=== PATIENT | male | born 1950 | race Caucasian/White ===

== ENCOUNTER 2020-04-23 08:07 | Outpatient (CLI) | payer MEDICARE, SELFPAY ==
--- NOTE | 2020-04-23 08:20 | XR_ITS ---
WS: [id number] Right knee, 3 views, 04/23/2020 Clinical Data: ARTHRALGIA OF RIGHT KNEE Comparison: None. Findings: No fractures or dislocations are seen. The joint spaces are normal. The patella is intact. The soft t issues are unremarkable. XR/XR knee RT 3V* [id number] Impression: Negative right knee.
== END 2020-04-23 08:08 | disposition home or self-care (01) ==
LOC: RADWPI 08:12
PROVIDERS: Family Provider Family Medicine; PCP Family Medicine
DX: M25.561 Pain in right knee (principal)
CPT/HCPCS: 73562

== ENCOUNTER → 2020-05-07 12:36 | Outpatient (BNVA) | payer MEDICARE, SELFPAY | PROVIDERS: Family Provider Family Medicine; PCP Family Medicine; Visit Provider Specialist | DX: M25.561 Pain in right knee (principal) | CPT/HCPCS: 73560; 73565 ==

== ENCOUNTER → 2022-04-12 16:25 | Outpatient (BNVA) | payer MEDICARE, SELFPAY | PROVIDERS: Family Provider Family Medicine; Visit Provider Family Medicine | DX: E78.2 Mixed hyperlipidemia (principal); I10 Essential (primary) hypertension; Z76.89 Persons encountering health services in other specified circumstances | CPT/HCPCS: 80053; 80061; 84153; 85025 ==

== ENCOUNTER 2022-04-20 11:22 | Outpatient (CLI) | payer MEDICARE, SELFPAY | END 2022-04-20 11:23 | disposition home or self-care (01) | PROVIDERS: Visit Provider Urology | DX: R97.20 Elevated prostate specific antigen [PSA] (principal) | CPT/HCPCS: 36415; 84153 ==

== ENCOUNTER → 2022-04-22 09:15 | Outpatient (BNVA) | payer MEDICARE, SELFPAY | PROVIDERS: Visit Provider Urology | DX: R97.20 Elevated prostate specific antigen [PSA] (principal) | CPT/HCPCS: 81003; 99204 ==

== ENCOUNTER 2022-05-23 14:04 | Oncology outpatient (recurring) (ONCR) | payer MEDICARE, SELFPAY | END 2022-06-10 23:59 | disposition home or self-care (01) | PROVIDERS: PCP Family Medicine; Visit Provider Internal Medicine Hematology & Oncology | DX: C61 Malignant neoplasm of prostate (principal); Z79.818 Long term (current) use of other agents affecting estrogen receptors and estrogen levels; Z87.891 Personal history of nicotine dependence | CPT/HCPCS: 99204 ==

== ENCOUNTER 2022-07-01 11:30 | Oncology outpatient (recurring) (ONCR) | payer MEDICARE, SELFPAY ==
[2022-06-23 15:19] LABS: Basophils % 0.6 %; Eosinophils # 0.3 10^3/uL (0.0-0.8); Eosinophils % 4.6 %; Hematocrit 35.6 % (42.0-52.0); Hemoglobin 12.6 g/dL (11.7-16.6); Lymphocytes # 1.5 10^3/uL (0.8-4.8); Lymphocytes % 22.1 %; Mean Corpuscular HGB Conc 35.4 g/dL (30.0-36.0); Mean Corpuscular Hemoglobin 34.4 pg (28.0-34.0); Mean Corpuscular Volume 97.3 fl (80-94); Mean Platelet Volume 9.3 fL (7.4-10.4); Monocytes # 0.5 10^3/uL (0.2-0.9); Monocytes % 7.2 %; Neutrophils # 4.29 10^3/uL (1.8-7.7); Neutrophils % 65.2 %; Nucleated Red Blood Cells % 0 %; Platelet Count 180 10^3/cmm (130-400); Red Blood Count 3.66 10^6/uL (4.1-5.3); Red Cell Distribution Width 11.7 % (12.1-15.1); White Blood Count 6.6 10^3/uL (4.0-10.0)
[2022-06-23 15:52] LABS: Alanine Aminotransferase 20 U/L (0-41); Albumin Level 4.5 g/dL (3.5-5.2); Alkaline Phosphatase 84 U/L (40-130); Anion Gap 14.1 (5-19); Blood Urea Nitrogen 14 mg/dL (8-23); Calcium 9.2 mg/dL (8.5-10.5); Carbon Dioxide 23 mmol/L (22-29); Chloride 101 mmol/L (98-107); Glomerular Filtration Rate 54.6 mL/min (90-130); Glucose 99 mg/dL (65-115); Osmolality Calculated 279 mOsm/kg (285-295); Potassium 4.1 mmol/L (3.5-5.1); Sodium 134 mmol/L (136-145); Testosterone Total 519.4 ng/dL (193-740); Total Bilirubin 0.4 mg/dL (0.15-1.2); Total Protein 7.5 g/dL (6.6-8.7)
[2022-06-23 16:10] LABS: Aspartate Amino Transferase 21 U/L (0-40)
[2022-07-01] MEDS: leuprolide 22.5 mg Kit IM (11:42)
== END 2022-07-11 23:59 | disposition home or self-care (01) ==
PROVIDERS: PCP Family Medicine; Visit Provider Internal Medicine Hematology & Oncology
DX: C61 Malignant neoplasm of prostate (principal); Z79.818 Long term (current) use of other agents affecting estrogen receptors and estrogen levels
CPT/HCPCS: 36415; 80053; 84153; 84403; 85025; 96402; 99214; J9217

== ENCOUNTER 2022-08-09 13:37 | Outpatient (CLI) | payer MEDICARE, SELFPAY ==
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
== END 2022-08-09 13:38 | disposition home or self-care (01) ==
LOC: RAD 13:40
PROVIDERS: PCP Family Medicine; Visit Provider Internal Medicine Hematology & Oncology
DX: C61 Malignant neoplasm of prostate (principal)
CPT/HCPCS: 72100; 72220

== ENCOUNTER 2022-08-10 13:06 | Oncology outpatient (recurring) (ONCR) | payer MEDICARE, SELFPAY ==
[2022-08-10 13:43] LABS: Basophils % 0.5 %; Eosinophils # 0.3 10^3/uL (0.0-0.8); Eosinophils % 4.7 %; Hematocrit 36.3 % (42.0-52.0); Hemoglobin 12.5 g/dL (11.7-16.6); Lymphocytes # 1.4 10^3/uL (0.8-4.8); Lymphocytes % 20.9 %; Mean Corpuscular HGB Conc 34.4 g/dL (30.0-36.0); Mean Corpuscular Volume 98.6 fl (80-94); Mean Platelet Volume 9.5 fL (7.4-10.4); Monocytes # 0.4 10^3/uL (0.2-0.9); Neutrophils # 4.43 10^3/uL (1.8-7.7); Neutrophils % 67.6 %; Nucleated Red Blood Cells % 0 %; Platelet Count 180 10^3/cmm (130-400); Red Blood Count 3.68 10^6/uL (4.1-5.3); Red Cell Distribution Width 11.6 % (12.1-15.1); White Blood Count 6.6 10^3/uL (4.0-10.0)
[2022-08-10 14:11] LABS: Alanine Aminotransferase 25 U/L (0-41); Albumin Level 4.2 g/dL (3.5-5.2); Alkaline Phosphatase 83 U/L (40-130); Aspartate Amino Transferase 23 U/L (0-40); Blood Urea Nitrogen 22 mg/dL (8-23); Calcium 9.1 mg/dL (8.5-10.5); Carbon Dioxide 24 mmol/L (22-29); Chloride 105 mmol/L (98-107); Glomerular Filtration Rate 50.1 mL/min (90-130); Glucose 101 mg/dL (65-115); Osmolality Calculated 289 mOsm/kg (285-295); Sodium 138 mmol/L (136-145); Testosterone Total 2.5 ng/dL (193-740); Total Bilirubin 0.4 mg/dL (0.15-1.2); Total Protein 7.2 g/dL (6.6-8.7)
== END 2022-08-10 23:59 | disposition home or self-care (01) ==
LOC: ONCMED 13:08
PROVIDERS: PCP Family Medicine; Visit Provider Internal Medicine Hematology & Oncology
DX: C61 Malignant neoplasm of prostate (principal); M87.852 Other osteonecrosis, left femur; M87.851 Other osteonecrosis, right femur; R59.0 Localized enlarged lymph nodes; F10.90 Alcohol use, unspecified, uncomplicated; Z79.818 Long term (current) use of other agents affecting estrogen receptors and estrogen levels; Z79.899 Other long term (current) drug therapy; Z87.891 Personal history of nicotine dependence
CPT/HCPCS: 36415; 80053; 84153; 84403; 85025; 99214

== ENCOUNTER 2022-09-29 08:29 | Oncology outpatient (recurring) (ONCR) | payer MEDICARE, SELFPAY ==
[2022-09-29 09:00] LABS: Basophils % 0.6 %; Eosinophils # 0.2 10^3/uL (0.0-0.8); Eosinophils % 3.5 %; Hematocrit 39.8 % (42.0-52.0); Hemoglobin 14.1 g/dL (11.7-16.6); Lymphocytes # 1.6 10^3/uL (0.8-4.8); Lymphocytes % 24.5 %; Mean Corpuscular HGB Conc 35.4 g/dL (30.0-36.0); Mean Corpuscular Hemoglobin 33.9 pg (28.0-34.0); Mean Corpuscular Volume 95.7 fl (80-94); Mean Platelet Volume 9.2 fL (7.4-10.4); Monocytes # 0.4 10^3/uL (0.2-0.9); Monocytes % 6.2 %; Neutrophils # 4.26 10^3/uL (1.8-7.7); Neutrophils % 64.7 %; Nucleated Red Blood Cells % 0 %; Platelet Count 208 10^3/cmm (130-400); Red Blood Count 4.16 10^6/uL (4.1-5.3); Red Cell Distribution Width 11.9 % (12.1-15.1); White Blood Count 6.6 10^3/uL (4.0-10.0)
[2022-09-29 09:35] LABS: Alanine Aminotransferase 35 U/L (0-41); Albumin Level 4.8 g/dL (3.5-5.2); Alkaline Phosphatase 91 U/L (40-130); Anion Gap 16.2 (5-19); Aspartate Amino Transferase 30 U/L (0-40); Blood Urea Nitrogen 17 mg/dL (8-23); Calcium 9.5 mg/dL (8.5-10.5); Carbon Dioxide 24 mmol/L (22-29); Chloride 102 mmol/L (98-107); Globulin 3.4 g/dL (1.3-4.6); Glomerular Filtration Rate 59.9 mL/min (90-130); Glucose 105 mg/dL (65-115); Osmolality Calculated 288 mOsm/kg (285-295); Potassium 4.2 mmol/L (3.5-5.1); Prostate Specific Antigen 0.895 ng/mL (0-4); Sodium 138 mmol/L (136-145); Testosterone Total 10.6 ng/dL (193-740); Total Bilirubin 0.9 mg/dL (0.15-1.2); Total Protein 8.2 g/dL (6.6-8.7)
[2022-09-29] MEDS: leuprolide 22.5 mg Kit IM (12:10)
== END 2022-10-11 23:59 | disposition home or self-care (01) ==
PROVIDERS: PCP Family Medicine; Visit Provider Internal Medicine Hematology & Oncology
DX: C61 Malignant neoplasm of prostate (principal); C79.51 Secondary malignant neoplasm of bone; M87.852 Other osteonecrosis, left femur; M87.851 Other osteonecrosis, right femur; Z79.52 Long term (current) use of systemic steroids; Z79.818 Long term (current) use of other agents affecting estrogen receptors and estrogen levels; Z79.899 Other long term (current) drug therapy; Z87.891 Personal history of nicotine dependence
CPT/HCPCS: 36415; 80053; 84153; 84403; 85025; 96402; 99214; J9217

== ENCOUNTER 2022-11-08 13:48 | Oncology outpatient (recurring) (ONCR) | payer MEDICARE, SELFPAY ==
--- NOTE | 2022-10-13 14:34 | N.ONRAD NP_ITS ---
Radiation Oncology Consultation Patient Name: Ravi Armas Date of : 1950 Date of Service: 10/13/2022 Attending Physician: Jerry Singh M.D. Ravi Armas was seen in consultation this morning at the request of Jf Parada M.D. for consideration of prostate radiotherapy in the management of low volume metastatic prostate cancer.. He initially was identified to have an elevated PSA level of 178.8 ng/mL in April. An MRI of the prostate ordered on May 03, 2022 described a 6.3 cm x 5.9 cm x 4.9 cm (119 cc) gland with abnormal signal intensity involving the transitional zone and bilateral peripheral zones, prostatic capsule, and abnormal soft tissue mass extending to the left seminal vesicle. There were no abnormally enlarged pelvic lymph nodes, however, signal abnormality was identified in the right inferior pubic ramus, right pubic symphysis, and right posterior acetabulum. A transrectal ultrasound-guided biopsy was not possible on account of the patient's medical history of ulcerative colitis for which a total colectomy was performed. A PSMA scan completed on June 17, 2022 confirmed metabolic activity within the left peripheral zone extending into the left seminal vesicle (SUV 11.3), right pubic symphysis (SUV 4.2), a sacral lesion (SUV 9.1) and mild tracer activity in the right lamina of C3 vertebral body. Bicalutamide and Lupron were prescribed. The first cycle of Lupron was administered on July 01, 2022. A radiograph of the sacrum completed on August 09, 2022 reported a sclerotic lesion involving the right pubic bone measuring 2.8 cm x 1.5 cm. A PSA level ordered on August 10, 2022 was 1.1 ng/mL and total testosterone was 2.5 ng/dL. A transperineal CT-guided biopsy was unable to be performed. I discussed with Mr. Armas The National Comprehensive Cancer Network Guidelines for prostate cancer patients with a low metastatic burden. Therapeutic options include ADT, ADT with an androgen biosynthesis or receptor inhibitor, or ADT and EBRT to the primary tumor. I would anticipate a 4 week course of hypofractionated prostate radiotherapy. Prior to commencement of radiotherapy, a planning CT scan will be acquired to delineate the clinical target volume. I also discussed potential adverse events related to radiotherapy. The patient has verbalized understanding would like to proceed as advised. The patient???s treatment plan was discussed with David Parada M.D. Signed by: Jerry Singh 11/01/2022 2:01:12 PM
--- NOTE | 2022-10-20 | CT_ITS ---
Radiation Therapy Planning CT images; total exam DLP: 808.54 mGy-cm MTDD
--- NOTE | 2022-11-01 14:42 | ONCRAD TMN_ITS ---
Radiation Oncology Treatment Management Note Patient Name: Ravi Armas Date of : 1950 Date of Service: 11/01/2022 Attending Physician: Jerry Singh M.D. Ravi Armas is a 72 year-old white male diagnosed with a low volume metastatic prostate cancer.. He initially was identified to have an elevated PSA level of 178.8 ng/mL in April. An MRI of the prostate ordered on May 03, 2022 described a 6.3 cm x 5.9 cm x 4.9 cm (119 cc) gland with abnormal signal intensity involving the transitional zone and bilateral peripheral zones, prostatic capsule, and abnormal soft tissue mass extending to the left seminal vesicle. There were no abnormally enlarged pelvic lymph nodes, however, signal abnormality was identified in the right inferior pubic ramus, right pubic symphysis, and right posterior acetabulum. A transrectal ultrasound-guided biopsy was not possible on account of the patient's medical history of ulcerative colitis for which a total colectomy was performed. A PSMA scan completed on June 17, 2022 confirmed metabolic activity within the left peripheral zone extending into the left seminal vesicle (SUV 11.3), right pubic symphysis (SUV 4.2), a sacral lesion (SUV 9.1) and mild tracer activity in the right lamina of C3 vertebral body. Bicalutamide and Lupron were prescribed. The first cycle of Lupron was administered on July 01, 2022. A radiograph of the sacrum completed on August 09, 2022 reported a sclerotic lesion involving the right pubic bone measuring 2.8 cm x 1.5 cm. A PSA level ordered on August 10, 2022 was 1.1 ng/mL and the total testosterone level was 2.5 ng/dL. A transperineal CT-guided biopsy was unable to be performed. The patient has received 15 Gy of a prescribed 60 Ruiz to the prostate. Upon review of systems, he denied any gastrointestinal of genitourinary complaints related to radiotherapy. He has nocturia. On physical examination, the patient weighed 205 lbs. His temperature was 97.2 ???F and the blood pressure was 157/92 mmHg. The pulse was 63 bpm and his respiratory rate was 16. Continue prostate radiotherapy as prescribed. I recommended increasing the Flomax dose to 0.8 mg at bedtime. Signed by: Jerry Singh 11/01/2022 2:40:55 PM
--- NOTE | 2022-11-08 14:32 | ONCRAD TMN_ITS ---
Radiation Oncology Treatment Management Note Patient Name: aRvi Armas Date of : 1950 Date of Service: 11/08/2022 Attending Physician: Jerry Singh M.D. Ravi Armas is a 72 year-old white male diagnosed with a low volume metastatic prostate cancer.. He initially was identified to have an elevated PSA level of 178.8 ng/mL in April. An MRI of the prostate ordered on May 03, 2022 described a 6.3 cm x 5.9 cm x 4.9 cm (119 cc) gland with abnormal signal intensity involving the transitional zone and bilateral peripheral zones, prostatic capsule, and abnormal soft tissue mass extending to the left seminal vesicle. There were no abnormally enlarged pelvic lymph nodes, however, signal abnormality was identified in the right inferior pubic ramus, right pubic symphysis, and right posterior acetabulum. A transrectal ultrasound-guided biopsy was not possible on account of the patient's medical history of ulcerative colitis for which a total colectomy was performed. A PSMA scan completed on June 17, 2022 confirmed metabolic activity within the left peripheral zone extending into the left seminal vesicle (SUV 11.3), right pubic symphysis (SUV 4.2), a sacral lesion (SUV 9.1) and mild tracer activity in the right lamina of C3 vertebral body. Bicalutamide and Lupron were prescribed. The first cycle of Lupron was administered on July 01, 2022. A radiograph of the sacrum completed on August 09, 2022 reported a sclerotic lesion involving the right pubic bone measuring 2.8 cm x 1.5 cm. A PSA level ordered on August 10, 2022 was 1.1 ng/mL and the total testosterone level was 2.5 ng/dL. A transperineal CT-guided biopsy was unable to be performed. The patient has received 30 Gy of a prescribed 60 Ruiz to the prostate. Upon review of systems, he has had an improvement in nocturia with the increase in Flomax dosage. On physical examination, the patient weighed 203 lbs. His temperature was 96.6 ???F and the blood pressure was 132/75 mmHg. The pulse was 78 bpm and his respiratory rate was 16. There was no erythema of the skin within the treatment garcia. A rash was noted on the right lower extremity. Continue prostate radiotherapy as planned. I recommended OTC hydrocortisone for the rash. Signed by: Jerry Singh 11/08/2022 2:30:50 PM
== END 2022-11-08 23:59 | disposition home or self-care (01) ==
PROVIDERS: PCP Family Medicine; Visit Provider Specialist
DX: C61 Malignant neoplasm of prostate (principal); C79.51 Secondary malignant neoplasm of bone; R35.1 Nocturia; R21 Rash and other nonspecific skin eruption; Z79.52 Long term (current) use of systemic steroids; Z79.899 Other long term (current) drug therapy; Z79.818 Long term (current) use of other agents affecting estrogen receptors and estrogen levels; Z87.891 Personal history of nicotine dependence
CPT/HCPCS: 77300; 77301; 77334; 77336; 77338; 77385; 77470; 99024; 99205; 99213; 99214

== ENCOUNTER 2022-11-22 13:44 | Oncology outpatient (recurring) (ONCR) | payer MEDICARE, SELFPAY ==
--- NOTE | 2022-11-15 14:26 | ONCRAD TMN_ITS ---
Radiation Oncology Treatment Management Note Patient Name: Ravi Armas Date of : 1950 Date of Service: 11/15/2022 Attending Physician: Jerry Singh M.D. Ravi Armas is a 72 year-old white male diagnosed with a low volume metastatic prostate cancer.. He initially was identified to have an elevated PSA level of 178.8 ng/mL in April. An MRI of the prostate ordered on May 03, 2022 described a 6.3 cm x 5.9 cm x 4.9 cm (119 cc) gland with abnormal signal intensity involving the transitional zone and bilateral peripheral zones, prostatic capsule, and abnormal soft tissue mass extending to the left seminal vesicle. There were no abnormally enlarged pelvic lymph nodes, however, signal abnormality was identified in the right inferior pubic ramus, right pubic symphysis, and right posterior acetabulum. A transrectal ultrasound-guided biopsy was not possible on account of the patient's medical history of ulcerative colitis resulting in a total colectomy. A PSMA scan completed on June 17, 2022 confirmed metabolic activity within the left peripheral zone extending into the left seminal vesicle (SUV 11.3), right pubic symphysis (SUV 4.2), a sacral lesion (SUV 9.1) and mild tracer activity in the right lamina of C3 vertebral body. Bicalutamide and Lupron were prescribed. The first cycle of Lupron was administered on July 01, 2022. A radiograph of the sacrum completed on August 09, 2022 reported a sclerotic lesion involving the right pubic bone measuring 2.8 cm x 1.5 cm. A PSA level ordered on August 10, 2022 was 1.1 ng/mL and the total testosterone level was 2.5 ng/dL. A transperineal CT-guided biopsy was unable to be performed. The patient has received 45 Gy of a prescribed 60 Ruiz to the prostate. Upon review of systems, he continues to have nocturia (8 times). He has been prescribed Flomax (0.8 mg). On physical examination, the patient weighed 200 lbs. His temperature was 97.7 ???F and the blood pressure was 140/73 mmHg. The pulse was 73 bpm and his respiratory rate was 18. There was no erythema of the skin within the treatment garcia. Continue prostate radiotherapy as prescribed. I will recommend a trial of NSAIDs. Signed by: Jerry Singh 11/15/2022 2:25:32 PM
--- NOTE | 2022-11-22 15:31 | ONCRAD TMN_ITS ---
Radiation Oncology Weekly Treatment Management/Treatment Summary Note Patient: Ravi Armas MR#: [id number] : 1950 Attending Physician: Nate Knight DO Date of Service: 11/22/2022 Referring Physician(s) : David Parada Diagnosis: C61 - Malignant neoplasm of prostate, Diagnosed 05/03/2022 (Active) Stage IVB, T1c, N0, M1b, P>=20 Radiotherapy to date: Course: Prostate Ca 2022, Treatment Site: Prostate Ca - Low-Vol Met Dz, Ref. ID: [id number], Energy: 6X, Dose/Fx (cGy): 300, #Fx: 20 / 20, Dose Correction (cGy): 0, Total Dose (cGy): 6,000, Start Date: 10/26/2022, End Date: 11/22/2022, Elapsed Days: 27 Reason for visit: The patient is being seen today as part of their regularly scheduled weekly on treatment visits to assess for acute toxicities from radiotherapy. Review of Systems: Patient denies any bone pain, dysuria, urgency, or frequency. He has no complaints of diarrhea, rectal bleeding, or pain with bowel movements. Patient is present today with his . Vital Signs: Performed on 11/22/2022 2:03 PM BMI - 27.643 kg/m2 (high), Height - 71.5 in, Weight - 201 lbs, Temperature - 97.5 f, Pulse - 74 /min, Respiration - 18 /min, O2 Sat - 95 % (low), Pain - 7, Fatigue - 7 and BP - 128/ 79 mm(hg). Physical Exam: Alert and oriented male appearing his stated age. Skin in the treatment area is intact without erythema or desquamation. Patient amatory without assistance. Imaging: Radiation therapy imaging related to accurate target localization (i.e. KV, MV and CBCT) was reviewed. Appropriate changes, if any, were made to ensure treatment accuracy. Plan: Patient completed radiation therapy today. Routine follow-up is scheduled in 1 month. He has been instructed to contact our office if he has questions or concerns prior to his scheduled follow-up. Signed by: Nate Knight DO 11/22/2022 3:30:28 PM
== END 2022-12-09 23:59 | disposition home or self-care (01) ==
PROVIDERS: PCP Family Medicine; Visit Provider Radiology Radiation Oncology
DX: Z51.0 Encounter for antineoplastic radiation therapy (principal); C61 Malignant neoplasm of prostate; C79.51 Secondary malignant neoplasm of bone; Z79.818 Long term (current) use of other agents affecting estrogen receptors and estrogen levels; Z79.899 Other long term (current) drug therapy; R35.1 Nocturia; Z87.891 Personal history of nicotine dependence
CPT/HCPCS: 77014; 77336; 77385; 99024

== ENCOUNTER 2022-12-22 11:27 | Oncology outpatient (recurring) (ONCR) | payer MEDICARE, SELFPAY ==
[2022-12-22 12:28] LABS: Basophils % 0.5 %; Eosinophils # 0.3 10^3/uL (0.0-0.8); Eosinophils % 4.9 %; Hematocrit 34.7 % (42.0-52.0); Hemoglobin 12.1 g/dL (11.7-16.6); Lymphocytes % 15.8 %; Mean Corpuscular HGB Conc 34.9 g/dL (30.0-36.0); Mean Corpuscular Hemoglobin 34.4 pg (28.0-34.0); Mean Corpuscular Volume 98.6 fl (80-94); Mean Platelet Volume 9.1 fL (7.4-10.4); Monocytes # 0.5 10^3/uL (0.2-0.9); Monocytes % 7.6 %; Neutrophils # 4.31 10^3/uL (1.8-7.7); Nucleated Red Blood Cells % 0 %; Platelet Count 175 10^3/cmm (130-400); Red Blood Count 3.52 10^6/uL (4.1-5.3); Red Cell Distribution Width 12.2 % (12.1-15.1); White Blood Count 6.1 10^3/uL (4.0-10.0)
[2022-12-22 12:59] LABS: Alanine Aminotransferase 18 U/L (0-41); Albumin Level 4.3 g/dL (3.5-5.2); Alkaline Phosphatase 65 U/L (40-130); Anion Gap 16.9 (5-19); Aspartate Amino Transferase 22 U/L (0-40); Blood Urea Nitrogen 24 mg/dL (8-23); Calcium 9.3 mg/dL (8.5-10.5); Carbon Dioxide 22 mmol/L (22-29); Chloride 104 mmol/L (98-107); Globulin 3.3 g/dL (1.3-4.6); Glomerular Filtration Rate 46.3 mL/min (90-130); Glucose 100 mg/dL (65-115); Osmolality Calculated 292 mOsm/kg (285-295); Potassium 3.9 mmol/L (3.5-5.1); Prostate Specific Antigen 0.444 ng/mL (0-4); Sodium 139 mmol/L (136-145); Total Bilirubin 0.4 mg/dL (0.15-1.2); Total Protein 7.6 g/dL (6.6-8.7)
[2022-12-22] MEDS: leuprolide 22.5 mg Kit IM (14:35)
== END 2023-01-08 23:59 | disposition home or self-care (01) ==
PROVIDERS: Absent Provider Internal Medicine Hematology & Oncology; PCP Family Medicine; Visit Provider Radiology Radiation Oncology
DX: C61 Malignant neoplasm of prostate; C79.51 Secondary malignant neoplasm of bone; M87.852 Other osteonecrosis, left femur; M87.851 Other osteonecrosis, right femur; R30.0 Dysuria; Z79.818 Long term (current) use of other agents affecting estrogen receptors and estrogen levels; Z79.899 Other long term (current) drug therapy; Z87.891 Personal history of nicotine dependence
CPT/HCPCS: 36415; 80053; 84153; 85025; 96402; 99214; J9217

== ENCOUNTER 2023-03-16 09:21 | Oncology outpatient (recurring) (ONCR) | payer MEDICARE, SELFPAY ==
[2023-03-16 13:58] VITALS: BP 122/73; PULSE 87; RESP 18; TEMP 36.4; O2SAT 97
[2023-03-16 14:10] LABS: Basophils % 0.5 %; Eosinophils # 0.4 10^3/uL (0.0-0.8); Eosinophils % 4.9 %; Hematocrit 34.7 % (42.0-52.0); Lymphocytes # 1.5 10^3/uL (0.8-4.8); Lymphocytes % 19.8 %; Mean Corpuscular HGB Conc 34.6 g/dL (30.0-36.0); Mean Corpuscular Hemoglobin 34.8 pg (28.0-34.0); Mean Corpuscular Volume 100.6 fl (80-94); Mean Platelet Volume 9.1 fL (7.4-10.4); Monocytes # 0.4 10^3/uL (0.2-0.9); Monocytes % 5.4 %; Neutrophils # 5.07 10^3/uL (1.8-7.7); Neutrophils % 69.1 %; Nucleated Red Blood Cells % 0 %; Platelet Count 163 10^3/cmm (130-400); Red Blood Count 3.45 10^6/uL (4.1-5.3); Red Cell Distribution Width 11.9 % (12.1-15.1); White Blood Count 7.3 10^3/uL (4.0-10.0)
[2023-03-16 14:35] LABS: Alanine Aminotransferase 24 U/L (0-41); Albumin Level 4.4 g/dL (3.5-5.2); Alkaline Phosphatase 65 U/L (40-130); Anion Gap 14.9 (5-19); Aspartate Amino Transferase 25 U/L (0-40); Blood Urea Nitrogen 27 mg/dL (8-23); Calcium 9.1 mg/dL (8.5-10.5); Carbon Dioxide 24 mmol/L (22-29); Chloride 106 mmol/L (98-107); Globulin 3.1 g/dL (1.3-4.6); Glomerular Filtration Rate 50.1 mL/min (90-130); Glucose 118 mg/dL (65-115); Osmolality Calculated 298 mOsm/kg (285-295); Potassium 3.9 mmol/L (3.5-5.1); Prostate Specific Antigen 0.147 ng/mL (0-4); Sodium 141 mmol/L (136-145); Total Bilirubin 0.5 mg/dL (0.15-1.2); Total Protein 7.5 g/dL (6.6-8.7)
[2023-03-16] MEDS: leuprolide 22.5 mg Kit IM (15:33)
[2023-03-16 15:38] VITALS: BP 114/78; PULSE 67; RESP 18; TEMP 36.2; O2SAT 98
== END 2023-04-10 23:59 | disposition home or self-care (01) ==
PROVIDERS: Absent Provider Internal Medicine Hematology & Oncology; PCP Family Medicine; Visit Provider Radiology Radiation Oncology
DX: C61 Malignant neoplasm of prostate; C79.51 Secondary malignant neoplasm of bone; Z79.818 Long term (current) use of other agents affecting estrogen receptors and estrogen levels; Z79.899 Other long term (current) drug therapy; N28.89 Other specified disorders of kidney and ureter; Z87.891 Personal history of nicotine dependence; Z79.52 Long term (current) use of systemic steroids
CPT/HCPCS: 36415; 80053; 84153; 85025; 96402; 99214; J9217

== ENCOUNTER 2023-06-19 12:57 | Oncology outpatient (recurring) (ONCR) | payer MEDICARE, SELFPAY ==
[2023-06-19 13:07] VITALS: BP 113/73; PULSE 70; RESP 17; TEMP 36.4; O2SAT 94
[2023-06-19 13:31] LABS: Basophils % 0.5 %; Eosinophils # 0.3 10^3/uL (0.0-0.8); Eosinophils % 4.8 %; Hematocrit 34.2 % (37-53); Lymphocytes # 1.1 10^3/uL (0.8-4.8); Lymphocytes % 17.8 %; Mean Corpuscular HGB Conc 35.1 g/dL (30-55); Mean Corpuscular Hemoglobin 34.3 pg (27-33); Mean Corpuscular Volume 97.7 fl (82-101); Mean Platelet Volume 9.1 fL (7.4-10.4); Monocytes # 0.4 10^3/uL (0.2-0.9); Monocytes % 5.9 %; Neutrophils # 4.41 10^3/uL (1.8-7.7); Neutrophils % 70.8 %; Nucleated Red Blood Cells % 0 %; Platelet Count 188 10^3/cmm (157-399); Red Cell Distribution Width 11.8 % (12.1-15.1); White Blood Count 6.23 10^3/uL (3.29-11.43)
[2023-06-19 14:05] LABS: Alanine Aminotransferase 22 U/L (0-41); Albumin Level 4.3 g/dL (3.5-5.2); Alkaline Phosphatase 86 U/L (40-130); Aspartate Amino Transferase 23 U/L (0-40); Blood Urea Nitrogen 27 mg/dL (8-23); Calcium 9.1 mg/dL (8.5-10.5); Carbon Dioxide 24 mmol/L (22-29); Chloride 102 mmol/L (98-107); Globulin 3.2 g/dL (1.3-4.6); Glucose 144 mg/dL (65-115); Osmolality Calculated 288 mOsm/kg (285-295); Prostate Specific Antigen 0.085 ng/mL (0-4); Sodium 135 mmol/L (136-145); Total Bilirubin 0.3 mg/dL (0.15-1.2); Total Protein 7.5 g/dL (6.6-8.7)
[2023-06-19] MEDS: leuprolide 22.5 mg Kit IM (14:56)
== END 2023-07-11 23:59 | disposition home or self-care (01) ==
PROVIDERS: Internal Medicine Medical Oncology; Absent Provider Internal Medicine Hematology & Oncology; PCP Family Medicine; Visit Provider Radiology Radiation Oncology
DX: Z51.11 Encounter for antineoplastic chemotherapy (principal); C61 Malignant neoplasm of prostate; C79.51 Secondary malignant neoplasm of bone; Z79.818 Long term (current) use of other agents affecting estrogen receptors and estrogen levels; Z79.899 Other long term (current) drug therapy; R35.1 Nocturia; Z87.891 Personal history of nicotine dependence
CPT/HCPCS: 36415; 80053; 84153; 85025; 96402; 99214; J9217

== ENCOUNTER 2023-09-14 12:26 | Oncology outpatient (recurring) (ONCR) | payer MEDICARE, SELFPAY ==
[2023-09-14 12:40] VITALS: BP 127/66; PULSE 87; RESP 16; TEMP 35.6; O2SAT 93
[2023-09-14 12:51] LABS: Basophils % 0.5 %; Eosinophils # 0.3 10^3/uL (0.0-0.8); Eosinophils % 4.2 %; Hematocrit 32.5 % (37-53); Lymphocytes # 1.1 10^3/uL (0.8-4.8); Lymphocytes % 15.9 %; Mean Corpuscular HGB Conc 34.8 g/dL (30-55); Mean Corpuscular Hemoglobin 34.3 pg (27-33); Mean Corpuscular Volume 98.8 fl (82-101); Mean Platelet Volume 9.2 fL (7.4-10.4); Monocytes # 0.5 10^3/uL (0.2-0.9); Monocytes % 6.9 %; Neutrophils # 4.78 10^3/uL (1.8-7.7); Neutrophils % 72.2 %; Nucleated Red Blood Cells % 0 %; Platelet Count 184 10^3/cmm (157-399); Red Blood Count 3.29 10^6/uL (3.85-5.65); Red Cell Distribution Width 12.4 % (12.1-15.1); White Blood Count 6.62 10^3/uL (3.29-11.43)
[2023-09-14 13:21] LABS: Alanine Aminotransferase 21 U/L (0-41); Albumin Level 4.1 g/dL (3.5-5.2); Alkaline Phosphatase 87 U/L (40-130); Anion Gap 14.9 (5-19); Aspartate Amino Transferase 19 U/L (0-40); Blood Urea Nitrogen 28 mg/dL (8-23); Calcium 9.1 mg/dL (8.5-10.5); Carbon Dioxide 22 mmol/L (22-29); Chloride 103 mmol/L (98-107); Globulin 3.3 g/dL (1.3-4.6); Glucose 124 mg/dL (65-115); Osmolality Calculated 289 mOsm/kg (285-295); Potassium 3.9 mmol/L (3.5-5.1); Prostate Specific Antigen 0.044 ng/mL (0-4); Sodium 136 mmol/L (136-145); Total Bilirubin 0.3 mg/dL (0.15-1.2); Total Protein 7.4 g/dL (6.6-8.7)
[2023-09-14] MEDS: leuprolide 22.5 mg Kit IM (14:55)
== END 2023-10-11 23:59 | disposition home or self-care (01) ==
PROVIDERS: Internal Medicine Medical Oncology; Absent Provider Internal Medicine Hematology & Oncology; PCP Family Medicine; Visit Provider Radiology Radiation Oncology
DX: Z51.11 Encounter for antineoplastic chemotherapy (principal); C61 Malignant neoplasm of prostate; C79.51 Secondary malignant neoplasm of bone; Z79.818 Long term (current) use of other agents affecting estrogen receptors and estrogen levels; Z79.899 Other long term (current) drug therapy; R35.1 Nocturia; Z87.891 Personal history of nicotine dependence
CPT/HCPCS: 36415; 80053; 84153; 85025; 99214; J9217

== ENCOUNTER 2023-12-14 11:23 | Oncology outpatient (recurring) (ONCR) | payer MEDICARE, SELFPAY ==
[2023-12-14 11:46] LABS: Basophils % 0.1 %; Eosinophils % 0.1 %; Hematocrit 35.5 % (37-53); Lymphocytes # 0.4 10^3/uL (0.8-4.8); Lymphocytes % 5.4 %; Mean Corpuscular HGB Conc 34.6 g/dL (30-55); Mean Corpuscular Hemoglobin 34.2 pg (27-33); Mean Corpuscular Volume 98.6 fl (82-101); Mean Platelet Volume 9.5 fL (7.4-10.4); Monocytes # 0.1 10^3/uL (0.2-0.9); Monocytes % 1.3 %; Neutrophils # 6.29 10^3/uL (1.8-7.7); Neutrophils % 92.5 %; Nucleated Red Blood Cells % 0 %; Platelet Count 188 10^3/cmm (157-399); White Blood Count 6.81 10^3/uL (3.29-11.43)
[2023-12-14 12:15] LABS: Alanine Aminotransferase 21 U/L (0-41); Albumin Level 4.5 g/dL (3.5-5.2); Alkaline Phosphatase 100 U/L (40-130); Aspartate Amino Transferase 20 U/L (0-40); Blood Urea Nitrogen 28 mg/dL (8-23); Calcium 9.1 mg/dL (8.5-10.5); Carbon Dioxide 21 mmol/L (22-29); Chloride 105 mmol/L (98-107); Globulin 3.5 g/dL (1.3-4.6); Glucose 178 mg/dL (65-115); Osmolality Calculated 296 mOsm/kg (285-295); Prostate Specific Antigen 0.021 ng/mL (0-4); Sodium 138 mmol/L (136-145); Total Bilirubin 0.3 mg/dL (0.15-1.2)
[2023-12-14 12:22] LABS: Anion Gap 16.1 (5-19); Potassium 4.1 mmol/L (3.5-5.1)
[2023-12-14] MEDS: leuprolide 22.5 mg Kit IM (14:21)
== END 2024-01-09 23:59 | disposition home or self-care (01) ==
PROVIDERS: Nurse Practitioner Family; Absent Provider Internal Medicine Hematology & Oncology; PCP Family Medicine; Visit Provider Radiology Radiation Oncology
DX: Z51.11 Encounter for antineoplastic chemotherapy (principal); C61 Malignant neoplasm of prostate; C79.51 Secondary malignant neoplasm of bone; Z79.818 Long term (current) use of other agents affecting estrogen receptors and estrogen levels; Z79.899 Other long term (current) drug therapy; R35.1 Nocturia; Z87.891 Personal history of nicotine dependence
CPT/HCPCS: 36415; 80053; 84153; 85025; 96402; 99214; J9217

== ENCOUNTER 2024-03-07 13:13 | Oncology outpatient (recurring) (ONCR) | payer MEDICARE, SELFPAY ==
[2024-03-07 13:34] LABS: Basophils % 0.4 %; Eosinophils # 0.2 10^3/uL (0.0-0.8); Eosinophils % 3.2 %; Hematocrit 33.7 % (37-53); Lymphocytes # 1.7 10^3/uL (0.8-4.8); Lymphocytes % 22.2 %; Mean Corpuscular HGB Conc 36.2 g/dL (30-55); Mean Corpuscular Hemoglobin 35.6 pg (27-33); Mean Corpuscular Volume 98.3 fl (82-101); Mean Platelet Volume 9.3 fL (7.4-10.4); Monocytes # 0.4 10^3/uL (0.2-0.9); Monocytes % 5.5 %; Neutrophils # 5.12 10^3/uL (1.8-7.7); Neutrophils % 68.6 %; Nucleated Red Blood Cells % 0 %; Platelet Count 176 10^3/cmm (157-399); Red Blood Count 3.43 10^6/uL (3.85-5.65); White Blood Count 7.47 10^3/uL (3.29-11.43)
[2024-03-07 14:06] LABS: Alanine Aminotransferase 22 U/L (0-41); Albumin Level 4.3 g/dL (3.5-5.2); Alkaline Phosphatase 92 U/L (40-130); Blood Urea Nitrogen 24 mg/dL (8-23); Calcium 9.1 mg/dL (8.5-10.5); Carbon Dioxide 20 mmol/L (22-29); Chloride 105 mmol/L (98-107); Globulin 3.2 g/dL (1.3-4.6); Glucose 142 mg/dL (65-115); Osmolality Calculated 292 mOsm/kg (285-295); Sodium 138 mmol/L (136-145); Total Bilirubin 0.3 mg/dL (0.15-1.2); Total Protein 7.5 g/dL (6.6-8.7)
[2024-03-07 14:07] LABS: Anion Gap 16.8 (5-19); Aspartate Amino Transferase 25 U/L (0-40); Potassium 3.8 mmol/L (3.5-5.1); Prostate Specific Antigen < 0.014 ng/mL (0-4)
[2024-03-07] MEDS: leuprolide 22.5 mg Kit IM (15:33)
== END 2024-03-10 23:59 | disposition home or self-care (01) ==
PROVIDERS: Nurse Practitioner Family; Absent Provider Internal Medicine Hematology & Oncology; PCP Family Medicine; Visit Provider Radiology Radiation Oncology
DX: Z51.11 Encounter for antineoplastic chemotherapy (principal); C61 Malignant neoplasm of prostate; C79.51 Secondary malignant neoplasm of bone; Z79.818 Long term (current) use of other agents affecting estrogen receptors and estrogen levels; Z79.899 Other long term (current) drug therapy; Z87.891 Personal history of nicotine dependence; Z90.49 Acquired absence of other specified parts of digestive tract; R23.2 Flushing; M25.50 Pain in unspecified joint; G72.0 Drug-induced myopathy; T45.1X5A Adverse effect of antineoplastic and immunosuppressive drugs, initial encounter; Z92.3 Personal history of irradiation
CPT/HCPCS: 36415; 80053; 84153; 85025; 96402; 99214; J9217

== ENCOUNTER 2024-05-30 12:49 | Oncology outpatient (recurring) (ONCR) | payer MEDICARE, SELFPAY ==
[2024-05-30 13:18] LABS: Basophils % 0.4 %; Eosinophils # 0.2 10^3/uL (0.0-0.8); Eosinophils % 1.9 %; Hematocrit 35.4 % (37-53); Lymphocytes # 1.2 10^3/uL (0.8-4.8); Lymphocytes % 15.4 %; Mean Corpuscular Hemoglobin 35.1 pg (27-33); Mean Corpuscular Volume 100.3 fl (82-101); Mean Platelet Volume 9.3 fL (7.4-10.4); Monocytes # 0.4 10^3/uL (0.2-0.9); Monocytes % 4.9 %; Neutrophils # 6.14 10^3/uL (1.8-7.7); Neutrophils % 76.9 %; Nucleated Red Blood Cells % 0 %; Platelet Count 172 10^3/cmm (157-399); Red Blood Count 3.53 10^6/uL (3.85-5.65); Red Cell Distribution Width 12.6 % (12.1-15.1); White Blood Count 7.98 10^3/uL (3.29-11.43)
[2024-05-30 13:49] LABS: Albumin Level 4.3 g/dL (3.5-5.2); Alkaline Phosphatase 92 U/L (40-130); Blood Urea Nitrogen 31 mg/dL (8-23); Carbon Dioxide 22 mmol/L (22-29); Chloride 105 mmol/L (98-107); Globulin 3.3 g/dL (1.3-4.6); Glucose 128 mg/dL (65-115); Osmolality Calculated 298 mOsm/kg (285-295); Sodium 140 mmol/L (136-145); Testosterone Total 2.5 ng/dL (193-740); Total Bilirubin 0.5 mg/dL (0.15-1.2); Total Protein 7.6 g/dL (6.6-8.7)
[2024-05-30 13:51] LABS: Prostate Specific Antigen < 0.014 ng/mL (0-4)
[2024-05-30 13:52] LABS: Alanine Aminotransferase 26 U/L (0-41); Anion Gap 16.9 (5-19); Aspartate Amino Transferase 32 U/L (0-40); Potassium 3.9 mmol/L (3.5-5.1)
[2024-05-30] MEDS: leuprolide 22.5 mg Kit IM (15:26)
== END 2024-06-10 23:59 | disposition home or self-care (01) ==
PROVIDERS: Internal Medicine Medical Oncology; Absent Provider Nurse Practitioner Family; PCP Family Medicine; Visit Provider Radiology Radiation Oncology
DX: Z51.11 Encounter for antineoplastic chemotherapy (principal); C61 Malignant neoplasm of prostate; C79.51 Secondary malignant neoplasm of bone; Z79.818 Long term (current) use of other agents affecting estrogen receptors and estrogen levels; Z79.899 Other long term (current) drug therapy; R35.1 Nocturia; Z87.891 Personal history of nicotine dependence; R79.89 Other specified abnormal findings of blood chemistry
CPT/HCPCS: 36415; 80053; 84153; 84403; 85025; 96402; 99214; J9217

== ENCOUNTER 2024-06-24 14:36 | Outpatient (CLI) | payer MEDICARE, SELFPAY ==
--- NOTE | 2024-06-24 15:15 | US_ITS ---
WS: [id number] RENAL ULTRASOUND HISTORY: elevated creatinine COMPARISON: None available. TECHNIQUE: 2-D and color Doppler imaging of the kidney submitted. Right kidney: 9.6 cm x 4.2 cm x 4.4 cm. Cortex: 1.0 cm Normal echogenicity with no hydronephrosis or mass. Left kidney: 10.1 cm x 3.7 cm x 4.4 cm. Cortex: 1.0 cm Normal echogenicity with no hydronephrosis or mass. Aorta: Normal. Urinary Bladder: Nondistended. US/US renal BI* [id number] IMPRESSION: Normal renal ultrasound.
== END 2024-06-24 14:37 | disposition home or self-care (01) ==
LOC: RAD 14:37
PROVIDERS: PCP Family Medicine; Visit Provider Nurse Practitioner Family
DX: R79.89 Other specified abnormal findings of blood chemistry (principal)
CPT/HCPCS: 76770

== ENCOUNTER 2024-07-01 13:52 | Oncology outpatient (recurring) (ONCR) | payer MEDICARE, SELFPAY ==
[2024-07-01 14:37] LABS: Alanine Aminotransferase 18 U/L (0-41); Albumin Level 4.3 g/dL (3.5-5.2); Alkaline Phosphatase 88 U/L (40-130); Blood Urea Nitrogen 21 mg/dL (8-23); Calcium 8.6 mg/dL (8.5-10.5); Carbon Dioxide 23 mmol/L (22-29); Chloride 102 mmol/L (98-107); Glucose 125 mg/dL (65-115); Osmolality Calculated 280 mOsm/kg (285-295); Sodium 133 mmol/L (136-145); Total Bilirubin 0.3 mg/dL (0.15-1.2); Total Protein 7.3 g/dL (6.6-8.7)
[2024-07-01 14:41] LABS: Anion Gap 11.6 (5-19); Aspartate Amino Transferase 22 U/L (0-40); Potassium 3.6 mmol/L (3.5-5.1)
== END 2024-07-11 23:59 | disposition home or self-care (01) ==
LOC: ONCMED 13:52
PROVIDERS: Absent Provider Nurse Practitioner Family; PCP Family Medicine; Visit Provider Radiology Radiation Oncology
DX: Z51.11 Encounter for antineoplastic chemotherapy (principal); C61 Malignant neoplasm of prostate; C79.51 Secondary malignant neoplasm of bone; Z79.818 Long term (current) use of other agents affecting estrogen receptors and estrogen levels; Z79.899 Other long term (current) drug therapy; R35.1 Nocturia; R79.89 Other specified abnormal findings of blood chemistry; Z87.891 Personal history of nicotine dependence
CPT/HCPCS: 36415; 80053

== ENCOUNTER 2024-08-27 10:39 | Outpatient (CLI) | payer MEDICARE, SELFPAY ==
--- NOTE | 2024-08-27 10:47 | XRR_ITS ---
PROCEDURE INFORMATION: Exam: XR Chest Exam date and time: 08/27/2024 10:57 AM Age: 74 years old Clinical indication: Shortness of breath; Additional info: R06.09 - other forms of dyspnea TECHNIQUE: Imaging protocol: Radiologic exam of the chest. Views: 2 views. COMPARISON: No relevant prior studies available. FINDINGS: Lungs: Patchy retrocardiac opacity. Right lower lobe discoid atelectasis. Pleural spaces: No significant pleural effusion. No definitive pneumothorax. Heart/Mediastinum: The cardiomediastinal silhouette is likely within normal limits. Bones/joints: Degenerative changes of the spine. XR/XR chest 2V* [id number] IMPRESSION: 1. Patchy retrocardiac and right lower lobe opacity may represent atelectasis or pneumonia. 2. No significant pleural effusion. No pneumothorax.
[2024-08-27 11:37] LABS: Erythrocyte Sedimentation Rate 14 mm/hr (0-10)
[2024-08-27 11:45] LABS: C Reactive Protein 3.4 mg/L (0.0-4.9); NT Pro B Type Natriuretic Pept 334 pg/mL (0-125)
== END 2024-08-27 10:40 | disposition home or self-care (01) ==
PROVIDERS: PCP Family Medicine; Visit Provider Family Medicine
DX: R06.09 Other forms of dyspnea (principal); J81.1 Chronic pulmonary edema; M47.819 Spondylosis without myelopathy or radiculopathy, site unspecified; R91.8 Other nonspecific abnormal finding of lung field
CPT/HCPCS: 36415; 71046; 83880; 85651; 86140; 93005

== ENCOUNTER 2024-09-10 08:00 | Oncology outpatient (recurring) (ONCR) | payer MEDICARE, SELFPAY ==
[2024-08-22 14:04] LABS: Basophils % 0.4 %; Eosinophils # 0.3 10^3/uL (0.0-0.8); Eosinophils % 3.8 %; Hematocrit 31.9 % (37-53); Lymphocytes # 1.2 10^3/uL (0.8-4.8); Lymphocytes % 16.7 %; Mean Corpuscular HGB Conc 34.5 g/dL (30-55); Mean Corpuscular Hemoglobin 35.3 pg (27-33); Mean Corpuscular Volume 102.2 fl (82-101); Mean Platelet Volume 9.4 fL (7.4-10.4); Monocytes # 0.5 10^3/uL (0.2-0.9); Monocytes % 6.6 %; Neutrophils # 5.11 10^3/uL (1.8-7.7); Neutrophils % 72.2 %; Nucleated Red Blood Cells % 0 %; Platelet Count 176 10^3/cmm (157-399); Red Blood Count 3.12 10^6/uL (3.85-5.65); White Blood Count 7.08 10^3/uL (3.29-11.43)
[2024-08-22 14:31] LABS: Alanine Aminotransferase 17 U/L (0-41); Alkaline Phosphatase 89 U/L (40-130); Anion Gap 16.3 (5-19); Aspartate Amino Transferase 21 U/L (0-40); Blood Urea Nitrogen 20 mg/dL (8-23); Calcium 9.1 mg/dL (8.5-10.5); Carbon Dioxide 23 mmol/L (22-29); Chloride 103 mmol/L (98-107); Creatinine Clr Calc Pharmacy 50.7238; Globulin 2.8 g/dL (1.3-4.6); Glucose 135 mg/dL (65-115); Osmolality Calculated 291 mOsm/kg (285-295); Potassium 4.3 mmol/L (3.5-5.1); Prostate Specific Antigen < 0.014 ng/mL (0-4); Sodium 138 mmol/L (136-145); Testosterone Total 2.5 ng/dL (193-740); Total Bilirubin 0.3 mg/dL (0.15-1.2); Total Protein 6.8 g/dL (6.6-8.7)
[2024-08-22] MEDS: leuprolide 22.5 mg Kit IM (15:29)
[2024-08-22 16:43] LABS: Ferritin 304 ng/mL (30-400); Iron 63 ug/dL (59-158); Total Iron Binding Capacity 252 mcg/dl; Unsaturated Iron Binding 189 ug/dL (112-347)
[2024-08-22 17:41] LABS: Vitamin B12 > 2000 pg/mL (232-1245)
--- NOTE | 2024-09-10 08:00 | NMR_ITS ---
PROCEDURE INFORMATION: Exam: NM Bone and/or Joint, Limited Exam date and time: 09/10/2024 8:00 AM Age: 74 years old Clinical indication: Bone pain; Hip; Right; Patient HX: HX of prostate cancer; Additional info: Prostate cancer, right hip pain TECHNIQUE: Imaging protocol: Nuclear bone scan was obtained. Views: Frontal and posterior Radiopharmaceutical: 26 mCi Tc-99m HDP (Oxidronate), IV. Time of imaging post radiopharmaceutical administration: 2 hours COMPARISON: No relevant prior studies available. FINDINGS: Skeleton: There is focal radiotracer uptake in the medial aspect of both knees and both shoulders which are likely degenerative. There is also focal radiotracer uptake at the L4 vertebral body. This is also most likely degenerative. No additional areas of radiotracer uptake seen throughout the rest of the axial skeleton. Soft tissues: Unremarkable. NM/NM bone scan whole body* [id number] IMPRESSION: Focal areas of radiotracer uptake in the medial knees, shoulders, and low back which are most likely degenerative. No additional areas of radiotracer uptake seen throughout the rest of the visualized axial skeleton to suggest metastatic disease.
== END 2024-09-10 23:59 | disposition home or self-care (01) ==
LOC: RAD 08:07 → ONCMED 09:33
PROVIDERS: Absent Provider Nurse Practitioner Family; PCP Family Medicine; Visit Provider Radiology Radiation Oncology
DX: Z53.9 Procedure and treatment not carried out, unspecified reason; C61 Malignant neoplasm of prostate; M25.551 Pain in right hip; M85.9 Disorder of bone density and structure, unspecified
CPT/HCPCS: 36415; 78306; 80053; 82607; 82728; 83540; 83550; 84153; 84403; 85025; 96402; 99214; A9561; J9217

== ENCOUNTER 2024-09-24 07:43 | Outpatient (CLI) | payer MEDICARE, SELFPAY ==
--- NOTE | 2024-09-24 08:00 | CT_ITS ---
WS: [id number] CT chest wo con [id number] HISTORY: R06.09 - Other forms of dyspnea TECHNIQUE: Axial imaging performed through the thorax. Coronal and sagittal reformats are submitted. All CT scans at [facility] use at least one of these dose optimization techniques: automated exposure control; mA and/or kV adjustment per patient size (includes targeted exams where dose is mat ched to clinical indication); or iterative reconstruction. CONTRAST: None DLP: 586.93 mGy.cm COMPARISON: Chest radiograph 08/27/2024 Lungs and central airway: Chronic emphysema with peripheral interstitial thickening and fibrosis. Hung cified nodule at the RIGHT lung base. No pulmonary mass or pneumonia. Pleura: Normal. No pleural effusion. Heart and pericardium: Normal size heart with no pericardial effusion. Mediastinum and thalia: Small mediastinal and hilar lymph nodes. No enlarged or necrotic lymph nodes. Vessels: Mild atherosclerosis aorta. No aneurysm. Normal size pulmonary artery. Chest wall and lower neck: No soft tissue masses. Upper abdomen: Small hiatal hernia. Hepatic cyst LEFT lobe of the liver has been previously described . Cyst measures 2.6 x 2.4 cm and has slightly increased in size since 04/09/2015. There is an addition al cyst which has also increased in size deep within the liver adjacent to the gallbladder fossa. Gal lbladder is negative. Perinephric stranding around each kidney. No adrenal mass. Osseous structures: Mild osteopenia. Mild increase in thoracic kyphosis with spondylosis. CT/CT chest wo con [id number] IMPRESSION: 1. Chronic emphysema with peripheral interstitial fibrosis. No pneumonia or pu lmonary mass or nodule. 2. No adenopathy. 3. Mild atherosclerosis aorta. 4. Hepatic cysts with slight increase in size since 2014.
== END 2024-09-24 07:44 | disposition home or self-care (01) ==
LOC: RAD 07:44
PROVIDERS: PCP Family Medicine; Visit Provider Family Medicine
DX: R06.09 Other forms of dyspnea (principal); R09.02 Hypoxemia; J43.8 Other emphysema; J44.89 Other specified chronic obstructive pulmonary disease; J84.10 Pulmonary fibrosis, unspecified; I70.0 Atherosclerosis of aorta; K76.89 Other specified diseases of liver; R91.1 Solitary pulmonary nodule; K44.9 Diaphragmatic hernia without obstruction or gangrene; R93.422 Abnormal radiologic findings on diagnostic imaging of left kidney; R93.421 Abnormal radiologic findings on diagnostic imaging of right kidney; M85.80 Other specified disorders of bone density and structure, unspecified site; M40.294 Other kyphosis, thoracic region; M47.819 Spondylosis without myelopathy or radiculopathy, site unspecified
CPT/HCPCS: 71250

== ENCOUNTER 2024-11-14 12:55 | Oncology outpatient (recurring) (ONCR) | payer MEDICARE, SELFPAY ==
[2024-11-14 13:29] LABS: Basophils % 0.3 %; Eosinophils # 0.2 10^3/uL (0.0-0.8); Eosinophils % 2.5 %; Hematocrit 35.6 % (37-53); Mean Corpuscular Hemoglobin 35.1 pg (27-33); Mean Corpuscular Volume 103.2 fl (82-101); Mean Platelet Volume 9.4 fL (7.4-10.4); Monocytes # 0.4 10^3/uL (0.2-0.9); Monocytes % 5.4 %; Neutrophils # 5.55 10^3/uL (1.8-7.7); Neutrophils % 77.5 %; Nucleated Red Blood Cells % 0 %; Platelet Count 181 10^3/cmm (157-399); Red Blood Count 3.45 10^6/uL (3.85-5.65); Red Cell Distribution Width 12.8 % (12.1-15.1); White Blood Count 7.16 10^3/uL (3.29-11.43)
[2024-11-14 13:55] LABS: Alanine Aminotransferase 18 U/L (0-41); Albumin Level 4.4 g/dL (3.5-5.2); Alkaline Phosphatase 90 U/L (40-130); Blood Urea Nitrogen 32 mg/dL (8-23); Carbon Dioxide 20 mmol/L (22-29); Chloride 106 mmol/L (98-107); Glucose 117 mg/dL (65-115); Osmolality Calculated 296 mOsm/kg (285-295); Sodium 139 mmol/L (136-145); Total Bilirubin 0.3 mg/dL (0.15-1.2); Total Protein 7.4 g/dL (6.6-8.7)
[2024-11-14 14:05] LABS: Anion Gap 17.2 (5-19); Aspartate Amino Transferase 24 U/L (0-40); Potassium 4.2 mmol/L (3.5-5.1); Prostate Specific Antigen < 0.014 ng/mL (0-4)
[2024-11-14 14:10] LABS: Folate Level 8.6 ng/mL (4.5-32.2)
[2024-11-14] MEDS: leuprolide 22.5 mg Kit IM (15:45)
[2024-11-14 15:49] VITALS: BP 124/78; PULSE 18; RESP 74; TEMP 36.1; O2SAT 98
== END 2024-12-09 23:59 | disposition home or self-care (01) ==
PROVIDERS: Nurse Practitioner; Absent Provider Nurse Practitioner Family; PCP Family Medicine; Visit Provider Radiology Radiation Oncology
DX: Z51.11 Encounter for antineoplastic chemotherapy (principal); C61 Malignant neoplasm of prostate; C79.51 Secondary malignant neoplasm of bone; R79.89 Other specified abnormal findings of blood chemistry; Z79.818 Long term (current) use of other agents affecting estrogen receptors and estrogen levels; M25.551 Pain in right hip; M16.9 Osteoarthritis of hip, unspecified; M19.09 Primary osteoarthritis, other specified site; Z79.899 Other long term (current) drug therapy; Z87.891 Personal history of nicotine dependence
CPT/HCPCS: 36415; 80053; 82746; 84153; 85025; 96402; 99213; J9217

== ENCOUNTER 2025-02-13 12:57 | Oncology outpatient (recurring) (ONCR) | payer MEDICARE, SELFPAY ==
[2025-02-13 13:23] LABS: Basophils % 0.4 %; Eosinophils # 0.1 10^3/uL (0.0-0.8); Eosinophils % 2.1 %; Hematocrit 34.9 % (37-53); Lymphocytes # 0.9 10^3/uL (0.8-4.8); Lymphocytes % 13.8 %; Mean Corpuscular HGB Conc 34.7 g/dL (30-55); Mean Corpuscular Hemoglobin 34.6 pg (27-33); Mean Corpuscular Volume 99.7 fl (82-101); Mean Platelet Volume 8.9 fL (7.4-10.4); Monocytes # 0.3 10^3/uL (0.2-0.9); Monocytes % 4.3 %; Neutrophils # 5.32 10^3/uL (1.8-7.7); Neutrophils % 79.1 %; Nucleated Red Blood Cells % 0 %; Platelet Count 155 10^3/cmm (157-399); Red Cell Distribution Width 12.4 % (12.1-15.1); White Blood Count 6.73 10^3/uL (3.29-11.43)
[2025-02-13 13:47] LABS: Alanine Aminotransferase 16 U/L (0-41); Albumin Level 4.2 g/dL (3.5-5.2); Alkaline Phosphatase 83 U/L (40-130); Anion Gap 16.8 (5-19); Aspartate Amino Transferase 19 U/L (0-40); Blood Urea Nitrogen 23 mg/dL (8-23); Calcium 9.1 mg/dL (8.5-10.5); Carbon Dioxide 21 mmol/L (22-29); Chloride 106 mmol/L (98-107); Globulin 3.2 g/dL (1.3-4.6); Glucose 137 mg/dL (65-115); Lactate Dehydrogenase 221 U/L (135-225); Osmolality Calculated 296 mOsm/kg (285-295); Potassium 3.8 mmol/L (3.5-5.1); Sodium 140 mmol/L (136-145); Testosterone Total 3.4 ng/dL (193-740); Total Bilirubin 0.3 mg/dL (0.15-1.2); Total Protein 7.4 g/dL (6.6-8.7)
[2025-02-13 13:49] LABS: Prostate Specific Antigen < 0.014 ng/mL (0-4)
[2025-02-13] MEDS: leuprolide 22.5 mg Kit IM (15:27)
== END 2025-03-10 23:59 | disposition home or self-care (01) ==
PROVIDERS: Internal Medicine; PCP Family Medicine; Visit Provider Nurse Practitioner
DX: Z51.11 Encounter for antineoplastic chemotherapy (principal); C79.51 Secondary malignant neoplasm of bone; Z79.818 Long term (current) use of other agents affecting estrogen receptors and estrogen levels; Z85.46 Personal history of malignant neoplasm of prostate; R79.89 Other specified abnormal findings of blood chemistry; M25.551 Pain in right hip; M19.90 Unspecified osteoarthritis, unspecified site; Z79.899 Other long term (current) drug therapy
CPT/HCPCS: 36415; 80053; 83615; 84153; 84403; 85025; 96402; 99214; J9217

== ENCOUNTER → 2025-03-25 14:15 | Outpatient (BNVA) | payer MEDICARE, SELFPAY | PROVIDERS: PCP Family Medicine; Visit Provider Physician Assistant | DX: M25.562 Pain in left knee (principal); M17.12 Unilateral primary osteoarthritis, left knee; M17.11 Unilateral primary osteoarthritis, right knee | CPT/HCPCS: 20610; 73560; 73565; 99213; J3301; J9999 ==

== ENCOUNTER 2025-05-15 12:25 | Oncology outpatient (recurring) (ONCR) | payer MEDICARE, SELFPAY ==
[2025-05-15 13:07] LABS: Hematocrit 34.6 % (37-53); Hemoglobin 12.20 g/dL (11.27-16.99); Mean Corpuscular HGB Conc 35.3 g/dL (30-55); Mean Corpuscular Hemoglobin 34.8 pg (27-33); Mean Corpuscular Volume 98.6 fl (82-101); Nucleated Red Blood Cells % 0 %; Platelet Count 187 10^3/cmm (157-399); Red Blood Count 3.51 10^6/uL (3.85-5.65); White Blood Count 6.93 10^3/uL (3.29-11.43)
[2025-05-15 13:31] LABS: Alanine Aminotransferase 20 U/L (0-41); Albumin Level 4.5 g/dL (3.5-5.2); Alkaline Phosphatase 77 U/L (40-130); Anion Gap 17.9 (5-19); Aspartate Amino Transferase 20 U/L (0-40); Blood Urea Nitrogen 27 mg/dL (8-23); Calcium 9.4 mg/dL (8.5-10.5); Carbon Dioxide 22 mmol/L (22-29); Chloride 101 mmol/L (98-107); Globulin 3.0 g/dL (1.3-4.6); Glucose 99 mg/dL (65-115); Osmolality Calculated 289 mOsm/kg (285-295); Potassium 3.9 mmol/L (3.5-5.1); Sodium 137 mmol/L (136-145); Total Protein 7.5 g/dL (6.6-8.7)
[2025-05-15 13:34] LABS: Prostate Specific Antigen < 0.014 ng/mL (0-4)
[2025-05-15 13:44] LABS: Hematocrit 34.8 % (37-53); Hemoglobin 12.30 g/dL (11.27-16.99); Mean Corpuscular HGB Conc 35.3 g/dL (30-55); Mean Corpuscular Hemoglobin 34.8 pg (27-33); Mean Corpuscular Volume 98.6 fl (82-101); Nucleated Red Blood Cells % 0 %; Platelet Count 194 10^3/cmm (157-399); Red Blood Count 3.53 10^6/uL (3.85-5.65); White Blood Count 6.95 10^3/uL (3.29-11.43)
[2025-05-15 14:14] VITALS: BP 112/78; PULSE 78; RESP 17; TEMP 36.6; O2SAT 97
[2025-05-15] MEDS: leuprolide 22.5 mg Kit IM (14:14)
== END 2025-06-10 23:59 | disposition home or self-care (01) ==
PROVIDERS: Internal Medicine; PCP Family Medicine; Visit Provider Nurse Practitioner
DX: Z51.11 Encounter for antineoplastic chemotherapy (principal); C61 Malignant neoplasm of prostate; C79.51 Secondary malignant neoplasm of bone; R79.89 Other specified abnormal findings of blood chemistry; M25.551 Pain in right hip; M25.562 Pain in left knee; M25.561 Pain in right knee; M54.50 Low back pain, unspecified; Z79.818 Long term (current) use of other agents affecting estrogen receptors and estrogen levels; Z87.891 Personal history of nicotine dependence; Z79.899 Other long term (current) drug therapy
CPT/HCPCS: 36415; 80053; 83615; 84153; 84403; 85025; 96402; 99213; J9217

== ENCOUNTER → 2025-07-09 08:43 | Outpatient (BNVA) | payer MEDICARE, SELFPAY | PROVIDERS: PCP Family Medicine; Visit Provider Student in an Organized Health Care Education/Training Program | DX: M17.0 Bilateral primary osteoarthritis of knee (principal) | CPT/HCPCS: 99214 ==

== ENCOUNTER 2025-07-22 14:31 | Outpatient (CLI) | payer MEDICARE, SELFPAY ==
--- NOTE | 2025-07-22 14:45 | CT_ITS ---
WS: [id number] CT LEFT knee, noncontrast HISTORY: preoperative imaging TECHNIQUE: Protocol for [facility] total knee replacement has been obtained. This includes axial imaging through the LEFT hip, LEFT knee and LEFT ankle. DLP: 1056.20 mGy.cm COMPARISON: Radiograph 04/23/2020, 03/25/2025 LEFT hip: Mild LEFT SI joint narrowing and sclerosis. No destructive bone lesions. Incompletely visualized large RIGHT lower abdominal parastomal hernia. LEFT knee: Tricompartment osteoarthritis. Severe narrowing of the medial compartment with near bone upon bone. No fractures. Moderate size Kimble's cyst. Small suprapatellar joint effusion. LEFT ankle: Negative. CT/CT knee LT [facility] [id number] IMPRESSION: CT imaging provided for [facility] robotic total knee replacement.
== END 2025-07-22 14:32 | disposition home or self-care (01) ==
LOC: RAD 14:33
PROVIDERS: PCP Family Medicine; Visit Provider Student in an Organized Health Care Education/Training Program
DX: M17.12 Unilateral primary osteoarthritis, left knee (principal); M53.3 Sacrococcygeal disorders, not elsewhere classified; M71.21 Synovial cyst of popliteal space [Baker], right knee; M25.462 Effusion, left knee
CPT/HCPCS: 73700

== ENCOUNTER → 2025-08-13 13:18 | Outpatient (BNVA) | payer MEDICARE, SELFPAY | PROVIDERS: PCP Family Medicine; Visit Provider Family Medicine | DX: Z01.810 Encounter for preprocedural cardiovascular examination (principal); I10 Essential (primary) hypertension; J84.10 Pulmonary fibrosis, unspecified | CPT/HCPCS: 71046; 80053; 85025 ==

== ENCOUNTER 2025-08-14 12:38 | Oncology outpatient (recurring) (ONCR) | payer MEDICARE, SELFPAY ==
[2025-08-14 12:53] LABS: Hematocrit 38.9 % (37-53); Hemoglobin 13.80 g/dL (11.27-16.99); Mean Corpuscular HGB Conc 35.5 g/dL (30-55); Mean Corpuscular Hemoglobin 34.6 pg (27-33); Mean Corpuscular Volume 97.5 fl (82-101); Nucleated Red Blood Cells % 0 %; Platelet Count 188 10^3/cmm (157-399); Red Blood Count 3.99 10^6/uL (3.85-5.65); White Blood Count 9.31 10^3/uL (3.29-11.43)
[2025-08-14 13:21] LABS: Alanine Aminotransferase 26 U/L (0-41); Albumin Level 4.6 g/dL (3.5-5.2); Alkaline Phosphatase 80 U/L (40-130); Anion Gap 14.7 (5-19); Aspartate Amino Transferase 22 U/L (0-40); Blood Urea Nitrogen 21 mg/dL (8-23); Calcium 9.5 mg/dL (8.5-10.5); Carbon Dioxide 25 mmol/L (22-29); Chloride 104 mmol/L (98-107); Globulin 3.0 g/dL (1.3-4.6); Glucose 122 mg/dL (65-115); Osmolality Calculated 294 mOsm/kg (285-295); Potassium 3.7 mmol/L (3.5-5.1); Prostate Specific Antigen < 0.014 ng/mL (0-4); Sodium 140 mmol/L (136-145); Total Protein 7.6 g/dL (6.6-8.7)
[2025-08-14] MEDS: leuprolide 22.5 mg Kit IM (15:02)
== END 2025-09-10 23:59 | disposition home or self-care (01) ==
PROVIDERS: PCP Family Medicine; Visit Provider Nurse Practitioner
DX: Z51.11 Encounter for antineoplastic chemotherapy (principal); C61 Malignant neoplasm of prostate; C79.51 Secondary malignant neoplasm of bone; R79.89 Other specified abnormal findings of blood chemistry; Z79.818 Long term (current) use of other agents affecting estrogen receptors and estrogen levels; Z79.899 Other long term (current) drug therapy; Z53.9 Procedure and treatment not carried out, unspecified reason
CPT/HCPCS: 36415; 80053; 84153; 84403; 85025; 96402; 99214; J9217

== ENCOUNTER 2025-08-27 12:22 | Outpatient (CLI) | payer MEDICARE, SELFPAY ==
[2025-08-27 13:32] LABS: Glucose Urine UA Trace (Normal); Nitrate Urine Negative (Negative); Specific Gravity, Urine 1.017 (1.005-1.030)
[2025-08-27 13:34] LABS: Add Urine Microscopic? YES
== END 2025-08-27 12:23 | disposition home or self-care (01) ==
PROVIDERS: PCP Family Medicine; Visit Provider Student in an Organized Health Care Education/Training Program
DX: Z01.818 Encounter for other preprocedural examination (principal)
CPT/HCPCS: 81001

== ENCOUNTER 2025-08-28 13:45 | Observation (INO) | payer MEDICARE, SELFPAY ==
[2025-08-28] VITALS (15 sets, daily range): BP systolic 103–152; BP diastolic 39–87; PULSE 76–94; RESP 14–20; TEMP 36.1–37.5; O2SAT 93–98; BMI 30.2
[2025-08-28 07:33] LABS: Hematocrit 34.5 % (37-53); Hemoglobin 12.40 g/dL (11.27-16.99); Mean Corpuscular HGB Conc 35.9 g/dL (30-55); Mean Corpuscular Hemoglobin 34.6 pg (27-33); Mean Corpuscular Volume 96.4 fl (82-101); Nucleated Red Blood Cells % 0 %; Platelet Count 181 10^3/cmm (157-399); Red Blood Count 3.58 10^6/uL (3.85-5.65); White Blood Count 6.41 10^3/uL (3.29-11.43)
[2025-08-28 07:55] LABS: Anion Gap 17.7 (5-19); Blood Urea Nitrogen 17 mg/dL (8-23); Calcium 9.6 mg/dL (8.5-10.5); Carbon Dioxide 23 mmol/L (22-29); Chloride 104 mmol/L (98-107); Glucose 113 mg/dL (65-115); Osmolality Calculated 294 mOsm/kg (285-295); Potassium 3.7 mmol/L (3.5-5.1); Sodium 141 mmol/L (136-145)
--- NOTE | 2025-08-28 10:13 | ANES.PREANE2 ---
Pre-Anesthetic Assessment Height/Weight: Height 5 ft 11 in Temp Pulse Resp BP Pulse Ox O2 Del Method 97 F L 94 18 117/76 98 Room Air 08/28/25 06:55 08/28/25 06:55 08/28/25 06:55 08/28/25 06:55 08/28/25 06:55 08/28/25 06:55 Preop Diagnosis: Knee arthritis Operation Date: 08/28/25 10:20 Proposed Procedures p [facility] Total Knee Arthroplasty(Left) - Bean Medina, DO Was Beta Yayo taken within 24 hours: N/A Was Clonidine taken within 24 hours: N/A Last intake: Intake Last Liquid Date 08/27/25 Last Liquid Time 22:00 Last Solid Date 08/27/25 Last Solid Time 18:30 Social No alcohol and No tobacco Exam alert, oriented x 3, clear to auscultation bilaterally and regular rate & rhythm Airway Submandibular: within normal limits Cervical ROM: within normal limits Mallampati: Class III Anesthetic Plan ASA status: 4 Anesthesia: General Other: No prior issues with anesthesia NPO since yesterday History of hypertension on losartan COPD Patient has a history of ulcerative colitis with colectomy/ileostomy Patient follows with oncology for prostate cancer. Per oncology notes, patient has stage IVb cancer with bone mets. Admits to decreased energy level, night sweats and SOB Patient does not use any oxygen currently, SpO2 98% on room air but patient's states his lungs are shock METs less than 4 Labs reviewed acceptable for procedure EKG sinus rhythm Plan for general anesthesia with peripheral nerve block Medications/Allergies Home Medications ?Medication ?Instructions ?Recorded ?Confirmed ?Last Taken ?Type albuterol sulfate 90 mcg/actuation 2 inh inhalation Q4H PRN shortness 09/19/24 08/27/25 08/25/25 Rx aerosol inhaler of breath or wheezing #8.5 grams guaifenesin 600 mg tablet, 600 mg PO BID PRN congestion, 09/19/24 08/27/25 Unknown Rx extended release 12 hr cough #30 tabs oxycodone-acetaminophen 10 mg-325 1 tab PO Q6H pain 30 days #120 tabs 08/05/25 08/27/25 08/26/25 Rx mg tablet atorvastatin 20 mg tablet 20 mg PO BEDTIME 08/27/25 08/27/25 08/26/25 History cetirizine 10 mg tablet (Zyrtec) 10 mg PO DAILY PRN Allergy Symptoms 08/27/25 08/28/25 08/28/25 History cyclobenzaprine 10 mg tablet 10 mg PO DIRECTED PRN muscle 08/27/25 08/28/25 08/26/25 History spasms fluticasone fur. 200 mcg-umeclid 1 inh inhalation 1XD 08/27/25 08/27/25 08/27/25 History 62.5 mcg-vilant 25 mcg inhalat.powder (Trelegy Ellipta) leuprolide acetate (3 month) 22.5 22.5 mg IM Q1-2M 08/27/25 08/27/25 08/14/25 History mg (3 month) intramuscular suspension (Lutrate Depot (3 month)) losartan 100 mg tablet 100 mg PO BEDTIME 08/27/25 08/27/25 08/26/25 History tamsulosin 0.4 mg capsule 0.8 mg PO BEDTIME 08/27/25 08/27/25 08/26/25 History acetaminophen 500 mg tablet 500 mg PO Q6H 08/28/25 08/28/25 08/28/25 06:00 History Allergies Allergy/AdvReac Type Severity Reaction Status Date / Time azathioprine (From Imuran) Allergy hives Verified 08/14/25 13:43 Current Medications Generic Name Dose Route Start Last Admin Trade Name Freq PRN Reason Stop Dose Admin Sodium Chloride 1,000 mls @ 30 mls/hr 08/28/25 07:00 08/28/25 07:15 Sodium Chloride 0.9% IV 08/29/25 06:59 30 mls/hr .Q24H COURTNEY Administration PFSH Anesthesia Medical History Osteoarthritis Ulcerative colitis Prostate cancer Mixed dyslipidemia COPD (chronic obstructive pulmonary disease) Hypertension Surgical History History of total colectomy Family History Father , at age 89 CAD (coronary artery disease) Mother , at age 35 Acute leukemia Brother Heart disease Denies family history of Diabetes Clotting disorder Dementia Hyperlipidemia Psychiatric illness Chronic kidney disease (CKD) Suicide Anesthesia complication Bleeding disorder Family history of premature coronary artery disease Lung disease Cancer Hypertension Stroke Social History Smoking and tobacco/nicotine status: never used tobacco/nicotine Quit status (tobacco/nicotine): has quit using Year quit tobacco: 1993 Alcohol intake: current Alcohol intake frequency: few times a week Substance/Drug Use: never Adopted: No Lives independently: No Household members: spouse Housing: House Marital status: Number of children: 1 Number of grandchildren: 3 Highest education level completed: High School Graduate Current occupational status: retired Current occupation: semi Data Anesthesia 08/28/25 07:12 08/28/25 07:12 Short CBC 08/28/25 Range/Units 07:12 WBC 6.41 (3.29-11.43) 10^3/uL Hgb 12.40 (11.27-16.99) g/dL Hct 34.5 L (37-53) % MCV 96.4 (82-101) fl Plt Count 181 (157-399) 10^3/cmm Neut % (Auto) 68.3 % Neut # (Auto) 4.38 (1.8-7.7) 10^3/uL BMP 08/28/25 07:12 Sodium 141 Potassium 3.7 Chloride 104 Carbon Dioxide 23 BUN 17 Creatinine 1.5 H Glucose 113 Calcium 9.6 Blood Bank 08/28/25 07:12 Blood Type A Negative Rho(D) Type Rh negative Antibody Screen Negative
--- NOTE | 2025-08-28 10:48 | W.PM.OPSFHP ---
Same Day Surgery H&P Indication for Procedure/HPI DATE OF PROCEDURE: August 28, 2025 CHIEF COMPLAINT/INDICATIONFOR SURGICAL PROCEDURE: Left knee DJD PREOP DIAGNOSIS: Left knee arthritis PLANNED PROCEDURE: Operation Date: 08/28/25 10:20 Proposed Procedures p Placido Robot Total Knee Arthroplasty(Left) - Bean Medina DO Medications/Allergies* Home Medications ?Medication ?Instructions ?Recorded ?Confirmed ?Type atorvastatin 20 mg tablet 20 mg PO BEDTIME 08/27/25 08/27/25 History cetirizine 10 mg tablet (Zyrtec) 10 mg PO DAILY PRN Allergy Symptoms 08/27/25 08/28/25 History cyclobenzaprine 10 mg tablet 10 mg PO DIRECTED PRN muscle 08/27/25 08/28/25 History spasms fluticasone fur. 200 mcg-umeclid 1 inh inhalation 1XD 08/27/25 08/27/25 History 62.5 mcg-vilant 25 mcg inhalat.powder (Trelegy Ellipta) leuprolide acetate (3 month) 22.5 22.5 mg IM Q1-2M 08/27/25 08/27/25 History mg (3 month) intramuscular suspension (Lutrate Depot (3 month)) losartan 100 mg tablet 100 mg PO BEDTIME 08/27/25 08/27/25 History tamsulosin 0.4 mg capsule 0.8 mg PO BEDTIME 08/27/25 08/27/25 History acetaminophen 500 mg tablet 500 mg PO Q6H 08/28/25 08/28/25 History Allergies/Adverse Reactions Allergy/AdvReac Type Severity Reaction Status Date / Time azathioprine (From Imuran) Allergy hives Verified 08/14/25 13:43 Current Medications: Generic Name Dose Route Start Last Admin Trade Name Freq PRN Reason Stop Dose Admin Sodium Chloride 1,000 mls @ 30 mls/hr 08/28/25 07:00 08/28/25 07:15 Sodium Chloride 0.9% IV 08/29/25 06:59 30 mls/hr .Q24H COURTNEY Administration Pertinent History/Comorbid Conditions* Medical History (Updated 08/13/25 @ 12:59 by Gorge Ho DO) Osteoarthritis Ulcerative colitis Prostate cancer Mixed dyslipidemia COPD (chronic obstructive pulmonary disease) Hypertension Surgical History (Updated 03/07/24 @ 19:44 by Cleveland Almazan MD) History of total colectomy Family History (Updated 03/07/24 @ 19:45 by Cleveland Almazan MD) Father, at age 89 Mother, at age 35 CAD (coronary artery disease) Father Heart disease Brother Acute leukemia Mother Denies family history of Diabetes Clotting disorder Dementia Hyperlipidemia Psychiatric illness Chronic kidney disease (CKD) Suicide Anesthesia complication Bleeding disorder Family history of premature coronary artery disease Lung disease Cancer Hypertension Stroke Social History Smoking and tobacco/nicotine status: never used tobacco/nicotine Quit status (tobacco/nicotine): has quit using Year quit tobacco: 1993 Alcohol intake: current Alcohol intake frequency: few times a week Substance/Drug Use: never Adopted: No Lives independently: No Household members: spouse Housing: House Marital status: Number of children: 1 Number of grandchildren: 3 Highest education level completed: High School Graduate Current occupational status: retired Current occupation: semi Pertinent Exam Findings alert, oriented x 3, operative site marked and procedure specific exam findings Please refer to anesthesia preoperative evaluation for heart and lung findings Please refer to detailed orthopedic examination on 07/09/2025 listed below: Bilateral Knee exam -positive joint effusion and patellar crepitus with range of motion -ROM full ROM -Tenderness to palpation over retropatellar space -Medial and lateral joint line tenderness -Negative Pricilla's -Negative valgus, negative varus -Positive Eliane's test with pain and no clicking on left side, but negative mcmurrays on right side. - Bilateral knees have 5 degree varus deformities correctable on examination Recommendations Risks and benefits of procedure reviewed and Patient/family agree to proceed Surgery/Procedure today Other Plans: Plan to proceed to the OR today for a left total knee arthroplasty?Placido robotic assisted. Patient understands the ins and outs procedure the risk benefits complication alternatives surgical nonsurgical treatment options. Understanding risk of surgery patient like to proceed with surgical intervention. All questions answered at this time. Patient is cleared the preoperative clearance process. He has been medically optimized by his PCP no injections in the last 90 days denies any new changes in his health since the last office visit, he is ready to proceed with surgical intervention today all questions answered. Coding Level of Care Code Acute Code for Chg Fwd
[2025-08-28] MEDS: ceFAZolin 2,000 MG in sodium chloride 0.9% (plus) 50 ML 100 MG IV ×2 (11:25→19:21)
[2025-08-28] MEDS: tranexamic acid 1,000 MG/100 ML PREMIX 600 MG IV ×2 (12:00→22:14)
[2025-08-28] MEDS: tranexamic acid 1,000 mg/10mL SDV 1000 MG XX (12:12)
[2025-08-28] MEDS: ROPivacaine 0.2% Premix 100 mL 200 MG INTRA-ARTI (12:15)
--- NOTE | 2025-08-28 13:14 | W.PM.BPON ---
Date of Procedure: 08/28/2025 Surgeon: Bean Medina DO Data Management Consultant(s): Franklyn Medina PA-C Procedure(s) performed: Left total knee arthroplasty?Placido robotic assisted Findings of the procedure(s): Patient underwent procedure as planned without issues or complications \ Estimated blood loss: 25 mL Specimen(s) removed: Tibia femur and patellar bone cuts removed Post-operative diagnosis: Left knee DJD
--- NOTE | 2025-08-28 13:16 | P.OP_ITS ---
Operative Report Date of procedure: August 28, 2025 Surgeon: Bean Medina DO [id number] Developer: Franklyn Medina PA-C: PA was necessary for assistance in this case with leg positioning retraction and protection of neurovascular structures as well as assistance in implantation wound closure and dressing application. Procedure: Preoperative diagnosis: Left knee degenerative joint disease Post-op diagnosis: Same Procedure done: Left total knee arthroplasty, cemented?robotic assisted Placido Implants: [place] triathlon size 5 femur CR cemented?left [place] triathlon size? 5 tibia universal baseplate cemented [place] triathlon symmetric patella size 33 mm Narda triathlon polyethylene 10mm Surgeon: Bean Medina DO Estimated blood?loss: 25 mL Tourniquet 60minutes IV fluids: 1700 mL Urine output: 250 mL Complications: None Condition: stable Disposition: floor Brief History: Patient is a 75-year-old male with with chronic?left knee degenerative joint disease.? Patient has been worked up in the outpatient setting in the orthopedic office at this point time through shared decision making given? [id number] arthritis as well as failed conservative treatment, and pt would?like to proceed with a?left total knee arthroplasty.? Through shared decision making elected to proceed with surgical intervention for?left total knee arthroplasty?Placido robotic assist.? We talked about continued conservative treatment and surgical intervention as far as the risk benefits complications alternatives surgical and nonsurgical treatment options.? At this point time understanding patient risks with surgery he agrees to proceed with surgical intervention.? Once again? risk with surgery include but are not?limited to make it better make it worse blood clot, heart attack, stroke, on the table, infection, injury to nerves or vessels, persistent pain, arthrofibrosis, implant failure.? Understanding these risks patient agrees to proceed with surgical intervention consent was obtained in the preop.? All questions answered. Procedure: Patient was seen and evaluated in the preoperative holding area.? Consent was reviewed and signed with patient with plan for?left total knee arthroplasty.? All questions answered.? Correct extremity marked.? Patient seen and evaluated by the anesthesia department and once cleared for surgery was taken back to the operative suite.? Patient was placed into a supine position on the OR table.? All bony prominences were well-padded.? Patient was appropriately secured to the bed.? Patient underwent anesthesia per the anesthesia department.? Patient received anesthesia and? Archibald catheter was placed.? A nonsterile tourniquet was applied to the?left thigh.? At this point in time a final timeout performed.? Patient received appropriate preoperative antibiotics and TXA. Next the?left?lower extremity was then prepped and draped in standard orthopedic fashion. Esmarch tourniquet was used exsanguinate the?left?lower extremity.? Tourniquet was insufflated to 250 mmHg. A standard anterior incision was made over midline of the knee.? Sharp scalpel excision through skin and subcutaneous tissue full-thickness skin flaps were made.? Fascia was elevated off of the extensor retinaculum was stable with medial parapatellar arthrotomy was then made.? The performed standard sequential releases..? Immediately on entry into the joint patient was found to have severe eburnated bone and tricompartmental arthritic changes noted.? With significant osteophyte formation.? Next the the patella was then stuffed and the knee was then flexed.?? Joe was placed superiorly around the anterior aspect of the femur this was freed of synovium and I subsequently then placed by 2 femur pins to establish my femur arrays for the Placido robot.? These were then placed bicortically and? femur array was then appropriately secured with appropriate visualization.? Next attention was turned towards the tibial rays.? These were then drilled sequentially bicortically in parallel fashion and intraincisional.? I then placed my guide as well as my tibial array on in place.? This was appropriately secured and had excellent visualization with the Placido robot.? Next the tibial checkpoint as well as femur checkpoint were then placed.? At this point time I then subsequently established my head center as well as my medial?lateral malleoli as well as my checkpoints.? Next utilizing standard Placido technology I then mapped out the appropriate points and confirmation points around the femur as well as the tibia in standard fashion.? Once this was then done I then removed all osteophytes in preparation for dynamic testing.? All osteophytes were removed as well as I removed the ACL and the PCL was excised due to its significant tearing and degeneration noted.? At this point time the knee was brought into full extension and we performed our standard evaluation of our gap balancing stressing his?ligaments and extension as well as flexion appropriate adjustments were made to have appropriate gap balancing in both flexion and extension.? This plan for final cuts were made to correct patient's varus deformity up to patient's ligamentous tolerances we get a preoperative plan evaluating our implants which was a size 5 femur and a size 5 tibia.? Next we brought in the Placido robot and sequentially made our femur cuts.? All excess bony cuts were then removed.? Finally we made our tibial cut.? Once this was done a standard PCL retractor was then placed into this position I excised the medial and?lateral meniscus.? The tibial cut was then subsequently removed all excess bony debris was removed.? I then utilized a?lamina shader and toner and remove the posterior osteophytes.? At this point time sized the tibia and confirmed this was a size 5.? I utilized our blunt probe to establish rotation of tibial implant.? Once this was done I then placed my tibia size 5 trial in appropriate position and then subsequently placed tibial pins to hold this into place and trialed up to a size 10 mm poly as well as a size 5 femur which was appropriately impacted in place knee was then subsequently brought into extension. Trials were then assessed,? this was stable with varus valgus stress in extension as well as had symmetrical translation when brought into flexion demonstrating symmetrical gaps. I had excellent balance gaps in flexion and extension with varus and valgus stresses.? At this point I was satisfied with these implants these were then verified and opened on the back table size 5 tibia, size 5 femur,? size 10 mm polythickness.? We did confirm appropriate gap balancing and stresses as well as alignment utilizing? Placido and were satisfied with this plan.? ?At this point time with my trials in place I then towel clip the patella everted this made appropriate measurements subsequently utilizing freehand technique performed by patellar resurfacing this was confirmed to be appropriate resection and subsequently sized to be a 33 mm symmetric.? My drill peg guides were then clamped and appropriate position and appropriate position in the patella for appropriate tracking and parallel with the joint.? Pegs were drilled trial implant was placed and the knee was then subsequently ranged and found to have excellent patellar tracking.? Femur pegs were then drilled.? Satisfied with our tibial placement rotation I then utilized the keel punch and prepped the tibia.? At this point time all of our trial implants were removed.? All checkpoints as well as guidepins and arrays were removed and appropriate counts made. Satisfied with our tibial placement rotation I then utilized the keel punch and prepped the tibia.? The wound bed? was thoroughly irrigated and dried and prepped for cementation.? Cement was mixed on the back table.? Once cement was ready this was then covered onto the tibia and the tibial baseplate was then impacted and all excess cement was removed.? Next the polyethylene was then impacted into place on the tibial baseplate.? Next cement was placed onto the femur as well as under the femur implants and impacted in to place and all excess cement was extruded and removed.? Knee was taken into full extension? to clear all excess cement was removed.? Warm saline was placed over the joint.? I then towel clip patella and dried for cementation. cemented the patella into place.? This was all clamped and the cement was allowed to cure.? Thorough irrigation performed with pulse?lavage.? I then placed my periarticular injection while the cement was curing.? Once cured the knee was taken through range of motion and had excellent stability and gaps were balanced in flexion and extension.? Tourniquet was then deflated. hemostasis satisfactory with electrocautery.? Vancomycin powder was placed in wound bed for antibiotic infection prophylaxis. Next I then subsequently closed the capsule with Ethibond suture as well as a running strata fix suture.? Knee was then taken through range of motion 20 times.? Next the skin was then closed in?layered fashion of running stratifix sutures of deep and subcutenous tissue and skin.? ?closed in flexion with miriam.? Incision was covered with fernie incisional VAC dressing, with ABDs soft roll and Vikram wrap.? Patient was then awakened from anesthesia and taken to PACU in stable condition. Disposition: Patient taken to PACU in stable condition will be admitted to the floor for pain control PT/OT weight-bear as tolerated?left?lower extremity dressing changes as needed, DVT prophylaxis. Pain control. Patient will receive appropriate postoperative antibiotics. patient will be seen today by the internal medicine team for medical management.? Patient will follow up with the office in 2 weeks.? Patient understands agrees with current plan.? All questions answered.
--- NOTE | 2025-08-28 13:21 | XR_ITS ---
WS: [id number] Left knee, AP and lateral views, 08/28/2025 Clinical Data: post L TKA Comparison: Bilateral knees, 03/25/2025 Findings: There is a knee arthroplasty with components in good position. There is air in the joint space from recent surgery. There are anterior surgical miriam. XR/XR knee LT 3V* [id number] Impression: Left knee arthroplasty.
--- NOTE | 2025-08-28 13:53 | ANE.PACU2 ---
Inpatient post-anesthesia follow up: Airway intact: Yes Vital signs: Temperature 97.8 F Pulse Rate 61 Respiratory Rate 15 Blood Pressure 119/74 Pulse Oximetry 94 Oxygen Delivery Me thod Room Air Oxygen Flow Rate 6 Fraction of Inspir ed Oxygen Hydration adequate: Yes Nausea and vomiting: No Pain level: 1 Mental status: Baseline
--- NOTE | 2025-08-28 14:06 | PM.PACU ---
PACU note Narrative: Patient is a 75-year-old male that just underwent a left total knee arthroplasty. Pt transferred to PACU in stable condition. Dressing is dry. pt is awake and alert. pt can wiggle toes and plantarflex and dorsiflex foot. pt able to perform straight leg raise, Femoral nerve intact. Distal pulses are palpable toes are warm and well-perfused. Cap refill is normal and under 2 seconds. Sensation to foot is intact. Pain is controlled. Exam: awake Disposition: admitted
[2025-08-28] MEDS: acetaminophen 1,000 MG/100 ML PIGGYBACK 400 MG IV ×2 (14:49→21:44)
[2025-08-28] MEDS: HYDROcodone-acetaminophen 5-325 mg Tablet 1 TAB PO ×2 (14:49→19:20)
--- NOTE | 2025-08-28 15:50 | PM.CONSULT ---
Providers/Reason For Consult Consulting Physician/Specialty*: Hospitalist Reason for Consult*: Medical management Attending Physician: Bean Medina DO Primary Care Provider: Gorge Ho DO History of Present Illness History of Present Illness Ravi Armas is a 75 year old male w/ pmhx of hypertension, dyslipidemia, hx of prostate cancer, COPD, CKD, and ulcerative colitis presents today S/P scheduled left total knee arthroplasty with Dr. Medina. Patient consulted to hospitalist services for continued medical management of comorbidities. Patient resting in bed post op left total knee arthroplasty this morning, on RA. Family noted to be at bedside during my evaluation. Patient reports 8/10 on pain scale, nurse at noted at bedside administering medications. Dressing to left knee noted to be C/D/I with ice pack in place. Distal pulses palpable, toes are warm, cap refill under 3 seconds. Patient denies chest pain shortness of breath, nausea, vomiting, diarrhea, abdominal pain, dark or tarry stools, fever, chills, recent illness, or syncope. Review of Systems General: Reports: 10 or more systems reviewed and unremarkable except in HPI and below Medications/Allergies Home Medications ?Medication ?Instructions ?Recorded ?Confirmed ?Last Taken ?Type albuterol sulfate 90 mcg/actuation 2 inh inhalation Q4H PRN shortness 09/19/24 08/27/25 08/25/25 Rx aerosol inhaler of breath or wheezing #8.5 grams guaifenesin 600 mg tablet, 600 mg PO BID PRN congestion, 09/19/24 08/27/25 Unknown Rx extended release 12 hr cough #30 tabs oxycodone-acetaminophen 10 mg-325 1 tab PO Q6H pain 30 days #120 tabs 08/05/25 08/27/25 08/26/25 Rx mg tablet atorvastatin 20 mg tablet 20 mg PO BEDTIME 08/27/25 08/27/25 08/26/25 History cetirizine 10 mg tablet (Zyrtec) 10 mg PO DAILY PRN Allergy Symptoms 08/27/25 08/28/25 08/28/25 History cyclobenzaprine 10 mg tablet 10 mg PO DIRECTED PRN muscle 08/27/25 08/28/25 08/26/25 History spasms fluticasone fur. 200 mcg-umeclid 1 inh inhalation 1XD 08/27/25 08/27/25 08/27/25 History 62.5 mcg-vilant 25 mcg inhalat.powder (Trelegy Ellipta) leuprolide acetate (3 month) 22.5 22.5 mg IM Q1-2M 08/27/25 08/27/25 08/14/25 History mg (3 month) intramuscular suspension (Lutrate Depot (3 month)) losartan 100 mg tablet 100 mg PO BEDTIME 08/27/25 08/27/25 08/26/25 History tamsulosin 0.4 mg capsule 0.8 mg PO BEDTIME 08/27/25 08/27/25 08/26/25 History acetaminophen 500 mg tablet 500 mg PO Q6H 08/28/25 08/28/25 08/28/25 06:00 History Allergies Allergy/AdvReac Type Severity Reaction Status Date / Time azathioprine (From Imuran) Allergy hives Verified 08/14/25 13:43 Current Medications Generic Name Dose Route Start Last Admin Trade Name Freq PRN Reason Stop Dose Admin Hydrocodone Bitart/Acetaminophen 1 tab 08/28/25 14:24 08/28/25 14:49 Hydrocodone-Acetaminophen 5-325 Mg Tablet PO 1 tab Q4H PRN Administration MODERATE PAIN Lactated Ringer's 1,000 mls @ 100 mls/hr 08/28/25 14:24 08/28/25 14:49 Lactated Ringers IV 100 mls/hr .Q10H COURTNEY Administration Acetaminophen 1,000 mg in 100 mls @ 400 mls/hr 08/28/25 14:24 08/28/25 15:20 Acetaminophen IV 08/29/25 06:38 Infused Q8H COURTNEY Infusion PFSH Acute PFSH: Medical History Osteoarthritis Ulcerative colitis Prostate cancer Mixed dyslipidemia COPD (chronic obstructive pulmonary disease) Hypertension Surgical History History of total colectomy Family History Father , at age 89 CAD (coronary artery disease) Mother , at age 35 Acute leukemia Brother Heart disease Denies family history of Diabetes Clotting disorder Dementia Hyperlipidemia Psychiatric illness Chronic kidney disease (CKD) Suicide Anesthesia complication Bleeding disorder Family history of premature coronary artery disease Lung disease Cancer Hypertension Stroke Social History Smoking and tobacco/nicotine status: never used tobacco/nicotine Quit status (tobacco/nicotine): has quit using Year quit tobacco: 1993 Alcohol intake: current Alcohol intake frequency: few times a week Substance/Drug Use: never Adopted: No Lives independently: No Household members: spouse Housing: House Marital status: Number of children: 1 Number of grandchildren: 3 Highest education level completed: High School Graduate Current occupational status: retired Current occupation: semi Vitals/I&O/Wt Last Vital Signs Temp 98.1 F 08/28/25 14:24 Pulse 76 08/28/25 15:20 Resp 20 H 08/28/25 14:24 BP 143/83 08/28/25 15:20 Pulse Ox 93 08/28/25 14:50 O2 Del Method Room Air 08/28/25 14:50 O2 Flow Rate 6 08/28/25 13:33 08/28/25 08/28/25 08/28/25 06:59 14:59 22:59 Intake Total 1950 / 1950 100 / 2050 Output Total 275 / 275 Balance 1675 / 1675 100 / 1775 Weight last 48 hrs Weight 98.5 kg Physical Exam Narrative: General: A&Ox4,resting in bed on RA, family noted at bedside during my evaluation Cardio: NSR, normal S1-S2 w/o any murmurs, rubs, or gallops and JVD normal Respiratory: Diminished to bilateral upper and wheezes noted to left lower lobe on auscultation GI: Abd soft, non-tender, non-distended, normo-active bowel sounds present Neuro: Moves all extremities, no sensory deficits, Normal speech Behavior: Appropriate and cooperative Extremities: Adequate palpable pulses. Dressing to left knee in place noted to be C/D/I w/ ice pack in place. Urinary Catheter Management: Archibald: Cath Placed During This Visit: yes Urinary Catheter Date of Insertion: 08/28/25 Urinary Catheter Time of Insertion: 11:40 Data 08/28/25 07:12 08/28/25 07:12 A&P Assessment and plan 1. Status post total left knee replacement: 2. COPD (chronic obstructive pulmonary disease): 3. Mixed dyslipidemia: 4. Essential hypertension: 5. Prostate cancer: Plan: S/P Left Total Knee Arthroplasty. - Patient s/p left total knee arthroplasty - Post- op v/s protocol, monitor - Fall precautions - Neurovascular checks q4hr - IS q1hr - PT, OT ordered. WBAT - IVF of LR at 100ml/hr - IV abx of Cefrazolin q8hr x3 - Ice pack as needed for pain - Pain analgesics ordered, PRN - CBC, CMP, ordered, dly. HTN - Continue home medication losartan 100 mg PO dly Dyslipidemia - Continue home medication atorvastatin 20 mg PO dly BPH hx of prostate cancer - Continue home medication tamsulosin 0.4mg PO dly COPD - w/o exacerbation - Continue home inhalers CODE STATUS: Full code VTE prophylaxis: Eliquis 2.5 mg p.o. BID PDMP PDMP Reviewed: Not Reviewed Consult Attestations Medical Necessity Statement: Patient will require less than 2 midnight stay for continued management of status post left total knee arthroplasty for PT/OT and medical management of comorbidities. Coding Level of Care Code Acute Code for Chg Fwd Diagnoses Status post total left knee replacement Z96.652 Laterality: left COPD (chronic obstructive pulmonary disease) J44.9 Mixed dyslipidemia E78.2 Essential hypertension I10 Prostate cancer C61
[2025-08-28] MEDS: calcium carb-vit d 600mg/400unit 1 Tablet 1 EACH PO (16:29)
[2025-08-28] MEDS: chlorhexidine gluconate 0.12% Btl 473 mL 30 ML MUCOUS MEM ×2 (16:30→22:15)
[2025-08-28] MEDS: mupirocin oint 22 gm 1 APPLIC NASAL (16:30)
[2025-08-28] MEDS: LOSARTAN 100 MG TABLET PO (21:43)
[2025-08-28] MEDS: ATORVASTATIN 20 MG TABLET PO (21:43)
[2025-08-29] MEDS: HYDROcodone-acetaminophen 5-325 mg Tablet 1 TAB PO ×4 (00:15→13:10)
[2025-08-29 03:35] VITALS: BP 132/77; PULSE 66; RESP 16; TEMP 36.6; O2SAT 92
[2025-08-29] MEDS: multivitamin therapeutic Tablet 1 TAB PO (04:48)
[2025-08-29] MEDS: ceFAZolin 2,000 MG in sodium chloride 0.9% (plus) 50 ML 100 MG IV ×2 (04:48→12:01)
[2025-08-29] MEDS: calcium carb-vit d 600mg/400unit 1 Tablet 1 EACH PO (04:48)
[2025-08-29] MEDS: chlorhexidine gluconate 0.12% Btl 473 mL 30 ML MUCOUS MEM ×2 (04:49→12:01)
[2025-08-29] MEDS: mupirocin oint 22 gm 1 APPLIC NASAL (04:49)
[2025-08-29 04:52] LABS: Hematocrit 29.5 % (37-53); Hemoglobin 10.50 g/dL (11.27-16.99); Mean Corpuscular HGB Conc 35.6 g/dL (30-55); Mean Corpuscular Hemoglobin 35.6 pg (27-33); Mean Corpuscular Volume 100.0 fl (82-101); Nucleated Red Blood Cells % 0 %; Platelet Count 168 10^3/cmm (157-399); Red Blood Count 2.95 10^6/uL (3.85-5.65); White Blood Count 12.47 10^3/uL (3.29-11.43)
[2025-08-29 05:19] VITALS: BMI 30.2
[2025-08-29 05:20] LABS: Blood Urea Nitrogen 16 mg/dL (8-23); Calcium 8.7 mg/dL (8.5-10.5); Carbon Dioxide 22 mmol/L (22-29); Chloride 104 mmol/L (98-107); Glucose 123 mg/dL (65-115); Osmolality Calculated 289 mOsm/kg (285-295); Sodium 138 mmol/L (136-145)
[2025-08-29 05:21] LABS: Anion Gap 16.5 (5-19); Potassium 4.5 mmol/L (3.5-5.1)
[2025-08-29] MEDS: acetaminophen 1,000 MG/100 ML PIGGYBACK 400 MG IV (06:30)
[2025-08-29 07:59] VITALS: BP 112/70; PULSE 79; RESP 17; TEMP 36.7; O2SAT 96
[2025-08-29 08:00] VITALS: PULSE 79; RESP 16; O2SAT 96
[2025-08-29] MEDS: APIXABAN 2.5 MG TABLET PO (08:06)
--- NOTE | 2025-08-29 08:35 | P.PN_ITS ---
Subjective 2 Subjective: Patient sitting up in chair on RA, noted to be at bedside during my evaluation. Patient noted to be completing occupational therapy session on my arrival to the room. He states he worked with physical therapy this morning. He reports 7/10 on pain scale. Nurse noted to be at bedside administering pain medication. Labs and vital signs reviewed. All questions and concerns addressed at bedside. Mr. Mendoza is okay to discharge on hospitalist standpoint. Medications: Reviewed: Yes Vitals/I&O/Wt Last Vital Signs Temp 98.0 F 08/29/25 07:59 Pulse 79 08/29/25 07:59 Resp 17 08/29/25 07:59 BP 112/70 08/29/25 07:59 Pulse Ox 96 08/29/25 07:59 O2 Del Method Room Air 08/29/25 07:59 O2 Flow Rate 6 08/28/25 13:33 08/28/25 08/29/25 08/29/25 22:59 06:59 14:59 Intake Total 350 / 2300 995 / 3295 100 / 100 Output Total 0 / 275 1650 / 1925 Balance 350 / 2025 -655 / 1370 100 / 100 Weight last 48 hrs Weight 98.4 kg Weight 98.5 kg Physical Exam 2 Narrative: General: A&Ox4, up in chair on RA, noted at bedside during my evaluation Cardio: NSR, normal S1-S2 w/o any murmurs, rubs, or gallops and JVD normal Respiratory: Diminished to bilateral upper and wheezes noted to left lower lobe on auscultation GI: Abd soft, non-tender, non-distended, colostomy in place, active bowel sounds Extremities: Adequate palpable pulses. Dressing to left knee in place noted to be C/D/I. Urinary Catheter Management: Archibald: Cath Placed During This Visit: yes, but has since been removed by the nurse Reason for Continuing Indwelling Catheter: Decision to DC Catheter Urinary Catheter Date of Insertion: 08/28/25 Urinary Catheter Time of Insertion: 11:40 Date Urinary Catheter Removed: 08/29/25 Time Urinary Catheter Discontinued: 06:36 Data 08/29/25 04:42 08/29/25 04:42 A&P Assessment and plan 1. Status post total left knee replacement: 2. Chronic obstructive pulmonary disease, unspecified COPD type: 3. Mixed dyslipidemia: 4. Essential hypertension: 5. Prostate cancer: Plan: S/P Left Total Knee Arthroplasty. - Patient s/p left total knee arthroplasty - Post- op v/s protocol, monitor - Fall precautions - Neurovascular checks q4hr - IS q1hr - PT, OT evaluated patient, see recommendations. WBAT - IVF of LR at 100ml/hr - IV abx of Cefrazolin q8hr x3- completed 08/29 - Ice pack as needed for pain - Pain analgesics ordered, PRN - Mr. Mendoza is okay to discharge on hospitalist standpoint. HTN - Continue home medication losartan 100 mg PO dly Dyslipidemia - Continue home medication atorvastatin 20 mg PO dly BPH hx of prostate cancer - Continue home medication tamsulosin 0.4mg PO dly COPD - w/o exacerbation - Continue home inhalers CODE STATUS: Full code VTE prophylaxis: Eliquis 2.5 mg p.o. BID PDMP PDMP Reviewed: Not Reviewed Attestations 2 Medical Necessity Statement*: Patient will require less than 2 midnight stay for continued management of status post left total knee arthroplasty for PT/OT and medical management of comorbidities. Coding Level of Care Code 15028 Diagnoses Status post total left knee replacement Z96.652 Laterality: left Chronic obstructive pulmonary disease, unspecified COPD type J44.9 COPD type: unspecified COPD Mixed dyslipidemia E78.2 Essential hypertension I10 Prostate cancer C61
[2025-08-29 11:43] VITALS: BP 119/74; PULSE 61; RESP 15; TEMP 36.6; O2SAT 94
--- NOTE | 2025-08-29 13:18 | P.DS_ITS ---
Discharge Providers Date of Admission: 08/28/25 13:45 Date of Discharge: August 29, 2025 Attending Provider at Admission: Bean Medina DO Attending Provider at Discharge: Bean Medina DO Consults: Hospitalist Primary Care Provider: Gorge Ho DO Diagnoses at Discharge Discharge Diagnosis 1. Status post total left knee replacement: 2. Chronic obstructive pulmonary disease, unspecified COPD type: 3. Mixed dyslipidemia: 4. Essential hypertension: 5. Prostate cancer: Reason for Visit Reason for Visit: M17.12 Brief History: Status post left total knee arthroplasty?[facility] robotic assisted Hospital Course Hospital Course Patient presented to the preoperative holding area with plan for [left] total knee arthroplasty after patient has been worked up in the outpatient setting for failed conservative treatment of [left] knee degenerative joint disease. Once cleared by anesthesia for surgery patient subsequently was taken back to the operative suite underwent anesthesia per anesthesia department and then subsequently underwent a [left] total knee arthroplasty. Procedure was performed without any complications patient was taken to PACU in stable condition patient recovered well in PACU and then was admitted to the floor postoperatively internal medicine was consulted and on board for medical management and assistance with care. Patient received appropriate PT/OT, postoperative antibiotics, pain control, postoperative DVT prophylaxis. Elevation and ice. Patient encouraged for knee range of motion allowed weightbearing as tolerated to the operative lower extremity. Dressing was changed as needed, labs were monitored daily. Patient recovered well postoperatively and worked well and progressed well with therapy. It was determined on postoperative day [ 1] the patient was stable for discharge from an orthopedic standpoint and medicine. Patient was comfortable with discharge and plan was discharged home. Patient received appropriate discharge instructions as well as pain medication and DVT prophylaxis postoperatively. Given appropriate instructions for dressing management. Patient will follow-up with Dr. Mednia/orthopedics in the office in 2 weeks. All questions answered. Understand if there is any issues questions or concerns and contact the office. Physical Exam Narrative: Left knee examination: Dressing on in place, clean dry and intact. No evidence of saturation. Patient has normal postoperative swelling and tenderness to palpation to the knee. Compartments are soft compressible,'s calf soft and nontender. Sensations intact to light touch distally. Distal pulses are palpable. Patient is able to wiggle toes as well as plantarflex and dorsiflex ankle. Urinary Catheter Management: Archibald: Cath Placed During This Visit: yes, but has since been removed by the nurse Reason for Continuing Indwelling Catheter: Decision to DC Catheter Urinary Catheter Date of Insertion: 08/28/25 Urinary Catheter Time of Insertion: 11:40 Date Urinary Catheter Removed: 08/29/25 Time Urinary Catheter Discontinued: 06:36 Discharge Data Studies Completed and Pending Completed Studies During Hospitalization Category Date Time Status XR knee LT 3V* [id number] Routine Exams 08/28/25 13:21 Completed Pending at discharge Category Date Time Status Basic Metabolic Panel AM LABS Lab 08/30/25 04:00 Ordered Basic Metabolic Panel AM LABS Lab 08/31/25 04:00 Ordered Complete Blood Count w/Auto AM LABS Lab 08/30/25 04:00 Ordered Complete Blood Count w/Auto AM LABS Lab 08/31/25 04:00 Ordered Radiology Impressions Knee X-Ray 08/28/25 13:21 Impression: Left knee arthroplasty. Laboratory Results WBC 12.47 10^3/uL (3.29-11.43) H 08/29/25 04:42 RBC 2.95 10^6/uL (3.85-5.65) L 08/29/25 04:42 Hgb 10.50 g/dL (11.27-16.99) L 08/29/25 04:42 Hct 29.5 % (37-53) L 08/29/25 04:42 MCV 100.0 fl (82-101) 08/29/25 04:42 MCH 35.6 pg (27-33) H 08/29/25 04:42 MCHC 35.6 g/dL (30-55) 08/29/25 04:42 RDW 11.9 % (12.1-15.1) L 08/29/25 04:42 Plt Count 168 10^3/cmm (157-399) 08/29/25 04:42 MPV 9.5 fL (7.4-10.4) 08/29/25 04:42 Neut % (Auto) 90.9 % 08/29/25 04:42 Lymph % (Auto) 4.3 % 08/29/25 04:42 [place] % (Auto) 3.9 % 08/29/25 04:42 Eos % (Auto) 0.1 % 08/29/25 04:42 Baso % (Auto) 0.1 % 08/29/25 04:42 Neut # (Auto) 11.33 10^3/uL (1.8-7.7) H 08/29/25 04:42 Lymph # (Auto) 0.5 10^3/uL (0.8-4.8) L 08/29/25 04:42 [place] # (Auto) 0.5 10^3/uL (0.2-0.9) 08/29/25 04:42 Eos # (Auto) 0.0 10^3/uL (0.0-0.8) 08/29/25 04:42 Baso # (Auto) 0.0 10^3/uL (0.0-0.1) 08/29/25 04:42 Nucleated RBC % (auto) 0 % 08/29/25 04:42 Nucleated RBCs # 0.0 /100WBC 08/29/25 04:42 Sodium 138 mmol/L (136-145) 08/29/25 04:42 Potassium 4.5 mmol/L (3.5-5.1) 08/29/25 04:42 Chloride 104 mmol/L (98-107) 08/29/25 04:42 Carbon Dioxide 22 mmol/L (22-29) 08/29/25 04:42 Anion Gap 16.5 (5-19) 08/29/25 04:42 BUN 16 mg/dL (8-23) 08/29/25 04:42 Creatinine 1.3 mg/dL (0.7-1.2) H 08/29/25 04:42 GFR Calculation Not Reportable 08/29/25 04:42 Glucose 123 mg/dL (65-115) H 08/29/25 04:42 Calculated Osmolality 289 mOsm/kg (285-295) 08/29/25 04:42 Calcium 8.7 mg/dL (8.5-10.5) 08/29/25 04:42 Blood Type A Negative 08/28/25 07:12 Rho(D) Type Rh negative 08/28/25 07:12 Antibody Screen Negative 08/28/25 07:12 Vitals Last Vital Signs Temp 97.8 F 08/29/25 11:43 Pulse 61 08/29/25 11:43 Resp 15 08/29/25 11:43 BP 119/74 08/29/25 11:43 Pulse Ox 94 08/29/25 11:43 O2 Del Method Room Air 08/29/25 11:43 O2 Flow Rate 6 08/28/25 13:33 Discharge Plan Discharge Patient Disposition: Home Condition: Stable Prescriptions: New Eliquis 2.5 mg tablet 2.5 mg PO BID 14 Days Qty: 28 0RF cefadroxil 500 mg capsule 500 mg PO BID 7 Days Qty: 14 0RF hydrocodone-acetaminophen 7.5-325 mg tablet 1 tab PO Q6H PRN (Reason: pain postop) 7 Days Qty: 28 0RF calcium carbonate-vitamin D3 [Calcium 600 + D(3)] 600 mg-10 mcg (400 unit) tablet 1 tab PO DAILY 30 Days Qty: 30 0RF Continued guaifenesin 600 mg tablet extended release 12hr 600 mg PO BID PRN (Reason: congestion, cough) Qty: 30 0RF albuterol sulfate 90 mcg/actuation HFA aerosol inhaler 2 inh inhalation Q4H PRN (Reason: shortness of breath or wheezing) Qty: 8.5 5RF atorvastatin 20 mg tablet 20 mg PO BEDTIME cyclobenzaprine 10 mg tablet 10 mg PO DIRECTED PRN (Reason: muscle spasms) tamsulosin 0.4 mg capsule 0.8 mg PO BEDTIME losartan 100 mg tablet 100 mg PO BEDTIME Trelegy Ellipta 200-62.5-25 mcg blister with device 1 inh inhalation 1XD cetirizine [Zyrtec] 10 mg Tablet 10 mg PO DAILY PRN (Reason: Allergy Symptoms) leuprolide acetate (3 month) [Lutrate Depot (3 month)] 22.5 mg Suspension For Reconstitution 22.5 mg IM Q1-2M Rx Instructions: Every 3 months acetaminophen 500 mg Tablet 500 mg PO Q6H No Action oxycodone-acetaminophen 10-325 mg tablet 1 tab PO Q6H 30 Days Qty: 120 0RF [place] [employer] OK for DC: Orthopedics and Hospitalist Discharge Order = DC NOW: Discharge Order (Routine); Ordered 08/29/25 Ordered By: Radha Allred Other Ambulatory Orders: Physical Therapy Eval and Treat Outpatient (Order) Timeframe: 1 Day Facility: [facility] - Location: Physical Therapy [place] Ordered By: Bean Medina Referrals: [facility] Outpatient Therapy [Outside] - 09/02/25 8:00 am Franklyn Medina PA [Physician [place], Orthopedics] - 09/16/25 1:45 pm Discharge Diet: Regular Discharge Activity: Limit activity as instructed and Use walker/crutches as instructed Patient Instructions: Cefadroxil (By mouth), Hydrocodone/Acetaminophen (By mouth), Apixaban (By mouth), Acute Wound Care (DC), Total Knee Replacement (DC), Post Anesthesia Care Activity Restrictions/Additional Instructions: Discharge instructions Fernie Dressing--Keep dressing on and dry. After 3 days remove Vikram bandage and soft dressing leave fernie white bandage dressing on in place. If you plan to shower use Saran wrap to keep bandage clean dry and intact and make sure to disconnect battery pack prior to showering. After done showering remove Saran wrap reconnect battery pack and pressed the orange button. Fernie dressing will stay on until follow up appt in 2 weeks. The battery pack for the dressing will at 5-7 days. Battery pack can be removed and discarded once batteries . Patient may weight-bear as tolerate to the operative extremity Utilize walker as needed Encourage knee range of motion Ice and elevate as needed for pain and swelling Take pain medication as prescribed Take antinausea medication as needed Take antibiotic as prescribed for infection prevention Pain medication can cause constipation. take [id number] stool softeners and or MiraLAX. Take prescribed Eliquis twice daily for the next 14 days for blood clot pr evention May supplement for pain with Tylenol [id number] as needed(500 mg every 8 hours-do not exceed more than 3000mg in 24-hour period?your pain medication does have Tylenol in it make sure not to take more than 3000 mg of Tylenol in a day) No baths or soaks Follow-up in the orthopedic office in 2 weeks Contact the office for any questions or concerns Discharge Attestations Time Spent in Discharge Care*: less than 30 min Quality Metrics Clinical Quality Measures [ No reported AMI, CVA or VTE this stay] Coding Level of Care Code Acute Code for Chg Fwd Diagnoses Status post total left knee replacement Z96.652 Laterality: left Chronic obstructive pulmonary disease, unspecified COPD type J44.9 COPD type: unspecified COPD Mixed dyslipidemia E78.2 Essential hypertension I10 Prostate cancer C61
[2025-08-29 14:06] VITALS: BP 119/74; PULSE 61; RESP 15; TEMP 36.6; O2SAT 94
== END 2025-08-29 14:09 | disposition home or self-care (01) ==
LOC: MEDSURG 13:46
PROVIDERS: Physician Assistant; Admitting Provider Student in an Organized Health Care Education/Training Program; PCP Family Medicine; Visit Provider Student in an Organized Health Care Education/Training Program
PROC: 8E0Y0CZ Robotic Assisted Procedure of Lower Extremity, Open Approach (ICD-10-PCS; CPT 27447; principal; 2025-08-28 10:20)
DX: M17.12 Unilateral primary osteoarthritis, left knee (principal); J44.9 Chronic obstructive pulmonary disease, unspecified; E78.2 Mixed hyperlipidemia; Z85.46 Personal history of malignant neoplasm of prostate; I12.9 Hypertensive chronic kidney disease with stage 1 through stage 4 chronic kidney disease, or unspecified chronic kidney disease; N18.9 Chronic kidney disease, unspecified; Z79.891 Long term (current) use of opiate analgesic; Z87.891 Personal history of nicotine dependence; Z90.49 Acquired absence of other specified parts of digestive tract
CPT/HCPCS: 27447; 20985; 36415; 51702; 73562; 80048; 85025; 86850; 86900; 94640; 97116; 97161; 97165; 97530; A4216; C1713; C1776; G0378; J0131; J0169; J0690; J1100; J1171; J1885; J2371; J2405; J2704; J2795; J3010; J3373; J7030; J7120; J7626; J9999; L8699